=== PATIENT | male | born 1940 ===

== ENCOUNTER 2020-10-02 14:52 | Inpatient (IN) | payer MEDICARE, BC ==
[2020-10-02] MEDS ORDERED: Hydrocortisone Acetate 25 MG Supp RECTAL PRN (20:12)
[2020-10-02] MEDS ORDERED: Polyethylene Glycol 3350 Powder 17 GM Packet PO PRN (20:12)
[2020-10-02] MEDS ORDERED: Albuterol 6.7 GM Inhaler INH PRN (20:12)
[2020-10-02] MEDS ORDERED: PETROLATUM RECTAL PRN (20:14)
[2020-10-02] MEDS ORDERED: SHARK LIVER OIL RECTAL PRN (20:14)
[2020-10-02] MEDS ORDERED: MINERAL OIL RECTAL PRN (20:14)
[2020-10-02] MEDS ORDERED: PHENYLEPHRINE RECTAL PRN (20:14)
--- NOTE | 2020-10-02 20:27 | PCM.HP.2 ---
H&P History of Present Illness - General Date of Service: 10/02/20 Admit Problem/Dx: Admission Diagnosis/Problem Admission Diagnosis/Problem Weakness Source of Information: Patient, Family (Significant other, Mhasa and son, Aris), Other ([facility]. Transfer records from [facility] and [facility]). No: Old Records (No [facility] records available) History Limitations: Reports: No Limitations - History of Present Illness Initial Comments - Free Text/Narative: The patient was transferred to our facility for swing bed admission via transport vehicle from [facility] in [place]. Note that the patient did have an ORIF/pinning of his right hip on 09/24/2020 with complicated postoperative course, including postoperative anemia without transfusions, pos toperative pneumonia, postoperative sepsis, recurrent rapid response called secondary to confusion likely secondary to his Ultram, and additional stroke code called on 09/30/2020 with negative work-up as below. Secondary to these complications his transfer to our facility for PT, OT, and strengthening was delayed. The patient denies any chest pain/pressure, heart flutter, dizziness, orthostasis, orthopnea, diaphoresis, paresthesias, recent decreased exercise tolerance, or any other anginal-type symptoms. No recent history of abdominal pain, heartburn, nausea, diarrhea, melena, gross hematochezia, or any food intolerance, including fatty foods, etc. with normal bowel movement prior to arrival. He does have a Patton catheter secondary to urinary retention with apparently on successful discontinuation during recent hospitalization as above. He denies any gross hematuria, colic, or other UTI symptoms. His arthritis is otherwise stable. The patient also denies any recent fever, wheezing, dyspnea, etc. although occasional persistent mostly clear productive cough. No history of recent headaches, visual changes, diplopia, change in mental status, or other change in neurological status. He denies any significant current pain or discomfort and has no longer required narcotic or Ultram use. Onset of Symptoms: Reports: Sudden Symptom Onset Date: 09/24/20 Duration of Symptoms: Reports: Improving (Tylenol if he can take Tylenol) Location: Reports: Lower Extremity, Right. Denies: Head, Face, Neck, Chest, Abdomen, Back, Pelvis, Upper Extremity, Left, Upper Extremity, Right, Radiates to Quality: Reports: Ache, Same as Previous Episode Severity: Mild Improves with: Reports: Rest Worsens with: Reports: Movement Context: Reports: Trauma (Follow-up with right hip fracture on 09/24/2021) Associated Symptoms: Denies: Confusion, Chest Pain, Cough, Diaphoresis, Fever/Chills, Headaches, Loss of Appetite, Malaise, Nausea/Vomiting, Rash, Seizure, Shortness of Breath, Syncope, Weakness Right Hip Pain Score (Numeric/FACES): 5 - Related Data Allergies/Adverse Reactions: Allergies Allergy/AdvReac Type Severity Reaction Status Date / Time morphine Allergy Nausea Verified 10/02/20 15:55 warfarin Allergy Itching Verified 10/02/20 15:55 isopropyl Nicotinate Allergy Itching Uncoded 10/02/20 15:55 Home Medications: Home Meds Acetaminophen [Acetaminophen Extra Strength] 1,000 mg PO TID 10/02/20 [History] Albuterol Sulfate [Albuterol Sulfate Hfa] 2 puff INH Q6HR PRN 10/02/20 [History] Albuterol/Ipratropium [DuoNeb 3.0-0.5 MG/3 ML] 1 ampule INH Q6HR PRN 10/02/20 [History] Aspirin [Aspirin EC] 81 mg PO BEDTIME 10/02/20 [History] Budesonide/Formoterol [Symbicort 160-4.5 MCG] 2 puff INH BID 10/02/20 [History] Calcium Citrate/Vitamin D3 [Calcium Cit 315 mg-D3 250 Unit] 1 tab PO BIDMEALS 10/02/20 [History] Cholecalciferol (Vitamin D3) [Vitamin D] 1,000 unit PO DAILY 10/02/20 [History] Cyanocobalamin (Vitamin B12) [Vitamin B12] 1,000 mcg PO DAILY 10/02/20 [History] Dabigatran [Pradaxa] 150 mg PO BID 10/02/20 [History] Ferrous Sulfate 325 mg PO DAILY 10/02/20 [History] Furosemide [Lasix] 20 mg PO DAILY@1200 10/02/20 [History] Furosemide [Lasix] 40 mg PO QAM 10/02/20 [History] Hydrocortisone Acetate 25 mg RECTAL BID PRN 10/02/20 [History] Metoprolol Succinate [Toprol Xl] 100 mg PO BID 10/02/20 [History] Omeprazole 20 mg PO BIDMEALS 10/02/20 [History] atorvaSTATin [Lipitor] 40 mg PO DAILY 10/02/20 [History] dilTIAZem HCL [Tiazac] 360 mg PO DAILY 10/02/20 [History] glipiZIDE [Glucotrol] 10 mg PO BIDMEALS 10/02/20 [History] metFORMIN HCl [Glucophage] 1,000 mg PO BIDMEALS 10/02/20 [History] polyethylene glycoL 3350 [MiraLAX] 17 gm PO DAILY PRN 10/02/20 [History] Past Medical History HEENT History: Reports: Cataract, Impaired Vision, Other (See Below). Denies: Allergic Rhinitis, Glaucoma, Hard of Hearing, Macular Degeneration, Otitis Media, Retinal Detachment Other HEENT History: Patient wears reading glasses. Cardiovascular History: Reports: Afib, Arrhythmia, Cardiomyopathy, Heart Failure, Heart Murmur, High Cholesterol, Hypertension, Pulmonary Hypertension, PVD, Other (See Below). Denies: Aneurysm, Blood Clots/VTE/DVT, Bypass, CAD, MD, PTCA, Stents, Syncope Other Cardiovascular History: Left atrial enlargement with mild pulmonary hypertension and mild to moderate tricuspid valve insufficiency by echocardiogram. Severe dyslipidemia. Complete right bundle branch block. Moderate 60% stenosis of the right internal carotid artery by CTA on 09/30/2020 as below, although greater than 70% bilateral stenosis by carotid artery Doppler studies on 10/01/2020. Respiratory History: Reports: Asthma, Bronchitis, Recurrent, COPD, Intubation, Previous, Pneumonia, Recurrent, Other (See Below). Denies: Intubation, Difficult, PE, Pneumothorax, Pulmonary Fibrosis, Sleep Apnea, TB Other Respiratory History: Recurrent left pleural effusions requiring thoracentesis as below. Benign pulmonary granulomas by CT scan. Gastrointestinal History: Reports: Cholelithiasis, Fatty Liver, GERD, Hemorrhoids, Hiatal Hernia, PUD, Other (See Below). Denies: Bowel Obstruction, Celiac Disease, Chronic Constipation, Chronic Diarrhea, Colon Polyp, Diverticulosis, Fecal Incontinence, GI Bleed, Inflammatory Bowel Disease, Irritable Bowel Syndrome, Jaundice Other Gastrointestinal History: Benign right hepatic hemangioma by ultrasound on 02/10/2020. Dysphagia. Genitourinary History: Reports: BPH, Chronic Renal Insuffiency, Diabetic Nephropathy, Retention, Urinary, Urinary Incontinence, Other (See Below). Denies: Renal Calculus, STD, UTI, Recurrent Other Genitourinary History: Grade 3 renal insufficiency. Musculoskeletal History: Reports: Arthritis, Fracture, Osteoarthritis, Other (See Below). Denies: Amputation, Gout, RA, SLE Other Musculoskeletal History: Right hip fracture on 09/24/2020 requiring surgery as below. Additional history of previous distant left hip fracture and concomitant left wrist and left foot fractures secondary to trauma requiring surgeries as below in 1986. Neurological History: Reports: Other (See Below). Denies: Alzheimers Disease, Cerebral Aneurysms, Concussion, CVA, Headaches, Chronic, Head Trauma, Migraines, MS, Neuropathy, Diabetic, Neuropathy, Peripheral, Parkinson's, Seizure, TIA, Vertigo Other Neuro History: Cerebral microvascular disease by CT scan with additional postoperative encephalopathy in September 2020 by EEG as below. Psychiatric History: Reports: Addiction, Other (See Below). 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 Endocrine/Metabolic History: Reports: Diabetes, Type II, Hypokalemia, Other (See Below). Denies: Diabetes, Type I, Hypomagnesemia, IDDM, Obesity/BMI 30+ Other Endocrine/Metabolic History: Hypocalcemia. Hyponatremia. Hematologic History: Reports: Anemia, B12 Deficiency, Iron Deficiency, Other (See Below) Other Hematologic History: Postoperative anemia not requiring transfusion. Immunologic History: Reports: None. Denies: AIDS, HIV, SLE Oncologic (Cancer) History: Reports: None. Denies: Basal Cell Carcinoma, Bladder, Colon, Hodgkin's Lymphoma, Leukemia, Lymphoma, Non-Hodgkin's Lymphoma, Prostate, Squamous Cell Carcinoma Dermatologic History: Denies: Eczema, Psoriasis - Infectious Disease History Infectious Disease History: Reports: Chicken Pox, Measles, Mumps, Scarlet Fever. Denies: C-Difficile, Meningitis, Mononucleosis, MRSA, Novel Coronavirus, Rheumatic Fever, Rubella, Shingles, TB, VRE - Past Surgical History HEENT Surgical History: Reports: Cataract Surgery, Eye Surgery, Oral Surgery, Other (See Below). Denies: Adenoidectomy, Laser Surgery, LASIK, Myringotomy w Tube(s), Naso-Sinus Surgery, Tonsillectomy Other HEENT Surgeries/Procedures: Complete teeth extraction with the patient only using upper dentures. Right cataract surgery in the 1970s. Bilateral lacrimal duct dilatation. Cardiovascular Surgical History: Denies: Varicose Respiratory Surgical History: Reports: Thoracentesis, Other (See Below) Other Respiratory Surgeries/Procedures: Left-sided thoracentesis on 09/30/2020 and 08/26/2020. GI Surgical History: Reports: Colon, Other (See Below) Other GI Surgeries/Procedures: Colonoscopy and EGD at the [facility] in September 2020 with records not available. Musculoskeletal Surgical History: Reports: ORIF, Other (See Below) Other Musculoskeletal Surgeries/Procedures:: ORIF/nail repair of right hip fracture on 09/24/2010 with similar procedure of the left hip in 1986. Note concomitant ORIF of left distal radial ulnar fracture and left foot fracture in 1986 at time of left hip surgery as above. - Past Imaging History Past Imaging History: Reports: Cardiac Echo (Last echocardiogram on 09/25/2020 did show some mild cardiomyopathy with ejection fraction of only 50% and otherwise findings as above. Previous echocardiogram in November 2019 showed an ejection fraction of 55-66%.), Carotid US (10/01/2020 with greater than 70% bilateral stenosis.), CAT Scan (CTA of the neck and head on 09/30/2020 with findings as above and otherwise right-sided 60% internal artery carotid stenosis. CT of the chest on 09/26/2020 with previous CTA of the chest on 08/23/2020.), MRA (MRA/MRI of the head on 09/30/2020), Swallow Study (Positive on 10/01/2020.), Ultrasound (Abdominal on 02/10/2020.), Venous Doppler (Negative venous Doppler study of the right leg on 09/26/2020.) Social & Family History - Family History Family Medical History: No Pertinent Family History Cardiac: Reports: CAD, Hypertension, Other (See Below) Other Cardiac Family History: Father with hypertension and coronary artery disease. Neurological: Reports: Parkinson's, Other (See Below) Other Neurological Family History: Mother with Parkinson's disease. Endocrine/Metabolic: Reports: Diabetes, type II, Other (See Below) Other Endocrine/Metabolic Family History: Mother with diabetes mellitus - Tobacco Use Tobacco Use Status *Q: Former Tobacco User Tobacco Use Within Last Twelve Months: No Years of Tobacco use: 39 Packs/Tins Daily: 4 Packs/Tins Daily Comment: Patient started smoking at age 17. Used Tobacco, but Quit: Yes Smoking Cessation Information Provided To Patient: No Second Hand Smoke Exposure: No Second Hand Smoke Education Provided: No - Caffeine Use Caffeine Use: Reports: Coffee (2 cups/day), Soda (Occasional), Tea (Occasional). Denies: Energy Drinks - Alcohol Use Alcohol Use History: No Days Per Week of Alcohol Use: 0 Number of Drinks Per Day: 0 Number of Drinks Per Day Comment: Possible history of borderline alcohol abuse while he was in the with no history of DWI, alcohol treatment, etc. Total Drinks Per Week: 0 Alcohol Use in Last Twelve Months: No - Recreational Drug Use Recreational Drug Use: No Drug Use in Last 12 Months: No Recreational Drug Type: Denies: Amphetamines (Speed), Cocaine, Heroin, Inhalants (Glues, Solvents, Aerosols), LSD (Acid), Marijuana/Hashish, Methamphetamine, Morphine, Oxycodone - Living Situation & Occupation Living situation: Reports: (X2. 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 Exam - Exam Exam: See Below - Vital Signs Vital Signs: Last Vital Signs Temp 37.7 C 10/02/20 15:56 Pulse 103 H 10/02/20 15:56 Resp 18 10/02/20 15:56 BP 123/58 L 10/02/20 15:56 Pulse Ox 95 10/02/20 15:56 Weight: 81.193 kg - Exam Quality Assessment: Urinary Catheter, DVT Prophylaxis (Pradaxa), Skin Breakdown (Mild rectal fold decubitus ulcer). No: Supplemental Oxygen, Central Line/PICC, Restraints General: Oriented, Cooperative HEENT: Conjunctiva Clear, EACs Clear, EOMI, Hearing Intact, Mucosa Moist & [place], Nares Patent, Normal Nasal Septum, Posterior Pharynx Clear, Pupils Equal, Pupils Reactive, TMs Clear, PERRLA Neck: Supple, Trachea Midline, Full Range of Motion, Carotid Bruit (Moderate 3/6 right-sided). No: Lymphadenopathy, JVD, Thyromegaly Lungs: Normal Respiratory Effort, Decreased Breath Sounds (Bases bilaterally left greater than right), Rales (Mild diffuse bilateral). No: Rhonchi, Rub, Stridor, Wheezing Cardiovascular: Normal S1, Normal S2, Irregular Rhythm, Systolic Murmur (Mild 1/6 LINDA of aortic valve). No: Diastolic Murmur, Rubs, Gallop/S3, Gallop/S4 GI/Abdominal Exam: Normal Bowel Sounds, Soft, Non-Tender, No Organomegaly, No Distention, No Abnormal Bruit, No Mass, Pelvis Stable, Other (Obese). No: Guarding (Male) Exam: Deferred Rectal (Males) Exam: Deferred Back Exam: Normal Inspection, Full Range of Motion. No: CVA Tenderness (L), CVA Tenderness (R), Muscle Spasm Extremities: No Pedal Edema, Normal Capillary Refill, Leg Pain (Mild in right hip secondary to recent fracture and surgery), Limited Range of Motion (Right hip secondary to recent surgery), Other (Excision side over the right lateral hip shows no local signs of infection or dehiscence. [place] present.). No: Increased Warmth, Redness Peripheral Pulses: 2+: Radial (L), Radial (R), Dorsalis Pedis (L), Dorsalis Pedis (R) Skin: Warm, Dry, Intact, Ecchymosis (Moderate to severe bruises on his arms bilaterally likely secondary to previous IV sites, etc.), Incision (Right hip incision as above), Decubitis (1 cm superficial grade 12 decubitus in the rectal fold). No: Rash, Petechia Neurological: Cranial Nerves Intact, Reflexes Equal Bilateral, Babinski Absent. No: Babinski Neuro Extensive - Mental Status: Alert, Oriented x3, Normal Mood/Affect, Normal Cognition Psychiatric: Alert, Normal Affect, Normal Mood. No: Agitated, Hallucinations, Withdrawal Symptoms - Patient Data Lab Results Last 24 hrs: Laboratory Results - last 24 hr 10/02/20 Range/Units 17:11 POC Glucose 249 H (65-110) mg/dl Otherwise blood work, x-rays, and EKG to be conducted on 10/03/2020. Imaging Impressions Last 24 hrs: As above Sepsis Event Note - Evaluation Sepsis Screening Result: No Definite Risk - Focused Exam Vital Signs: Vital Signs Temp Pulse Resp BP Pulse Ox 10/02/20 15:56 37.7 C 103 H 18 123/58 L 95 - Problem List (1) Weakness SNOMED Code(s): 62625852 ICD Code: R53.1 - WEAKNESS Status: Acute Priority: High Current Visit: Yes Problem Details: Postoperative weakness with patient admitted to swing bed for PT/OT, and strengthening. (2) Atrial fibrillation SNOMED Code(s): 62168184 ICD Code: I48.91 - UNSPECIFIED ATRIAL FIBRILLATION Status: Chronic Priority: Medium Current Visit: Yes Problem Details: Currently on Pradaxa. No chest pain or anginal type symptoms despite evidence of CHF and left pleural effusion during recent hospitalization. Chest x-ray, EKG, and cardiac labs are to be conducted in the a.m. Note elevated BNP of 783 on 10/01. Note recent echocardiogram on 09/25/2020 with results as above. Qualifiers: Atrial fibrillation type: permanent Qualified Code(s): I48.21 - Permanent atrial fibrillation (3) CHF (congestive heart failure) SNOMED Code(s): 52701389 ICD Code: I50.9 - HEART FAILURE, UNSPECIFIED Status: Chronic Priority: Medium Current Visit: Yes Problem Details: As above Qualifiers: Heart failure type: systolic Heart failure chronicity: acute on chronic Qualified Code(s): I50.23 - Acute on chronic systolic (congestive) heart failure (4) Osteoarthritis SNOMED Code(s): 388464925 ICD Code: M19.90 - UNSPECIFIED OSTEOARTHRITIS, UNSPECIFIED SITE Status: Chronic Priority: Medium Current Visit: Yes Problem Details: Otherwise stable by history despite recent right hip fracture and ORIF as above. Qualifiers: Osteoarthritis location: multiple joints Osteoarthritis type: primary Qualified Code(s): M89.49 - Other hypertrophic osteoarthropathy, multiple sites (5) Dyslipidemia SNOMED Code(s): 982114365 ICD Code: E78.5 - HYPERLIPIDEMIA, UNSPECIFIED Status: Chronic Priority: Medium Current Visit: Yes Problem Details: Severe dyslipidemia with HDL of only 18 on 09/30/2020. (6) Diabetes mellitus SNOMED Code(s): 53464456 ICD Code: E11.9 - TYPE 2 DIABETES MELLITUS WITHOUT COMPLICATIONS Status: Chronic Priority: Medium Current Visit: Yes Problem Details: Patient carmela rendon did need sliding scale during recent hospitalization, however was not on insulin previously. Continue sliding scale for now. Glycosylated hemoglobin in the a.m. Qualifiers: Diabetes mellitus type: type 2 Diabetes mellitus keno terminal operator insulin use: without keno terminal operator use Diabetes mellitus complication status: with kidney complications Diabetes mellitus complication detail: with chronic kidney disease Chronic kidney disease stage: stage 3 (moderate) (7) Anemia SNOMED Code(s): 099124649 ICD Code: D64.9 - ANEMIA, UNSPECIFIED Status: Acute Priority: Medium Current Visit: Yes Problem Details: History of postoperative anemia with hemoglobin of 9.2 and mild thrombocytosis on 10/01/2020. No evidence of acute GI bleed. Blood work scheduled for 10/02. Note history of both vitamin B12 and iron deficiency. Qualifiers: Anemia type: iron deficiency (8) Peptic reflux disease SNOMED Code(s): 239001970 ICD Code: K21.9 - GASTRO-ESOPHAGEAL REFLUX DISEASE WITHOUT ESOPHAGITIS Status: Chronic Priority: Medium Current Visit: Yes Problem Details: Stable by history. Continue current medical therapy. (9) Carotid artery occlusion Status: Chronic Priority: High Current Visit: Yes Onset Date: ~10/01/20 Problem Details: Note bilateral disease by carotid artery Doppler studies with mostly right-sided disease by CTA of the neck on 09/30/2020. By family history they already have scheduled follow-up evaluations as scheduled at [place]. Qualifiers: Laterality: bilateral Qualified Code(s): I65.23 - Occlusion and stenosis of bilateral carotid arteries (10) COPD (chronic obstructive pulmonary disease) SNOMED Code(s): 40927484 ICD Code: J44.9 - CHRONIC OBSTRUCTIVE PULMONARY DISEASE, UNSPECIFIED Status: Chronic Priority: Medium Current Visit: Yes Problem Details: Note possible postoperative pneumonia based on review of records as above. Patient was to be discharged with antibiotics with history of postoperative sepsis including positive blood cultures for Staph epidermidis. Obtain further clarification from [facility]. Qualifiers: COPD type: emphysema Emphysema type: panlobular Qualified Code(s): J43.1 - Panlobular emphysema Problem List Initiated/Reviewed/Updated: Yes Orders Last 24hrs: Active Orders 24 hr Category Date Time Status Patient Status [ADT] Routine ADT 10/02/20 20:06 Active Communication Order [RC] ROUTINE Care 10/02/20 20:18 Active Communication Order [RC] ROUTINE Care 10/02/20 20:18 Active Height and Weight [RC] PER UNIT ROUTINE Care 10/02/20 20:08 Active Intake and Output [RC] ASDIRECTED Care 10/02/20 20:06 Active May Shower [RC] ASDIRECTED Care 10/02/20 20:06 Active Notify Provider Vital Signs [RC] ASDIRECTED Care 10/02/20 20:08 Active Oxygen Therapy [RC] PRN Care 10/02/20 20:06 Active RT Aerosol Therapy [RC] ASDIRECTED Care 10/02/20 20:14 Active RT Post Treatment Assessment [RC] Click to Edit Care 10/02/20 20:14 Active RT Pre-Treatment Assessment [RC] Click to Edit Care 10/02/20 20:14 Active Up With Assistance [RC] ASDIRECTED Care 10/02/20 20:06 Active Urinary Catheter Assessment [RC] ASDIRECTED Care 10/02/20 20:06 Active VTE/DVT Education [RC] PER UNIT ROUTINE Care 10/02/20 20:06 Active Vital Signs [RC] PER UNIT ROUTINE Care 10/02/20 20:06 Active Consult to Case Management/Air Conditioning Mechanic [CONS] Cons 10/02/20 20:06 Active Routine OT Evaluation and Treatment [CONS] Routine Cons 10/02/20 20:06 Active PT Evaluation and Treatment [CONS] Routine Cons 10/02/20 20:06 Active Chest 1V Frontal [CR] Routine Exams 10/03/20 05:11 Ordered CBC WITH AUTO DIFF [HEME] Routine Lab 10/03/20 05:11 Ordered CK W CKMB [CHEM] Routine Lab 10/03/20 05:11 Ordered COMPREHENSIVE METABOLIC PN,CMP [CHEM] Routine Lab 10/03/20 05:11 Ordered INR,PT,PROTHROMBIN TIME [COAG] Routine Lab 10/03/20 05:11 Ordered PRO B-TYPE NATRIUR PEPT,BNPPRO [CHEM] Routine Lab 10/03/20 05:11 Ordered PTT,PARTIAL THROMBOPLSTIN TIME [COAG] Routine Lab 10/03/20 05:11 Ordered TROPONIN I [CHEM] Routine Lab 10/03/20 05:11 Ordered Acetaminophen [Tylenol Extra Strength] Med 10/03/20 08:00 Ordered 1,000 mg PO TID Albuterol [Proventil HFA] Med 10/02/20 20:12 Ordered DOSE gm INH Q6HR PRN Albuterol/Ipratropium [DuoNeb 3.0-0.5 MG/3 ML] Med 10/02/20 20:12 Ordered DOSE ml INH Q6HR PRN Aspirin [Halfprin] Med 10/03/20 20:00 Ordered 81 mg PO BEDTIME Budesonide/Formoterol Med 10/03/20 08:00 Ordered 2 puff INH BID Calcium Citrate/Vitamin D3 [Calcium Cit 315 mg-D3 250 Med 10/03/20 07:30 Ordered Unit] 1 tab PO BIDMEALS Cholecalciferol (Vitamin D3) [Vitamin D3] Med 10/03/20 08:00 Ordered DOSE mcg PO DAILY Cyanocobalamin (Vitamin B12) [Vitamin B12] Med 10/03/20 08:00 Ordered 1,000 mcg PO DAILY Dabigatran Med 10/03/20 08:00 Ordered 150 mg PO BID Ferrous Sulfate Med 10/03/20 08:00 Ordered 325 mg PO DAILY Furosemide [Lasix] Med 10/03/20 12:00 Ordered 20 mg PO DAILY@1200 Furosemide [Lasix] Med 10/03/20 08:00 Ordered 40 mg PO QAM Hydrocortisone Acetate [Anucort-HC] Med 10/02/20 20:12 Ordered 25 mg RECTAL BID PRN MO/Pet,Wh/Phenylephrine/Shk Lv [Preparation H Oint] Med 10/02/20 20:14 Ordered 1 gm RECTAL ASDIRECTED PRN Metoprolol Succinate [Toprol Xl] Med 10/03/20 08:00 Ordered 100 mg PO BID Omeprazole Med 10/03/20 07:30 Ordered 20 mg PO BIDMEALS atorvaSTATin [Lipitor] Med 10/03/20 08:00 Ordered 40 mg PO DAILY dilTIAZem HCL [Tiazac] Med 10/03/20 08:00 Ordered 360 mg PO DAILY glipiZIDE [Glucotrol] Med 10/03/20 07:30 Ordered 10 mg PO BIDMEALS metFORMIN HCl [Glucophage] Med 10/03/20 07:30 Ordered 1,000 mg PO BIDMEALS polyethylene glycoL 3350 [MiraLAX] Med 10/02/20 20:12 Ordered 17 gm PO DAILY PRN Patient May Not [OM.PC] Click to Edit Oth 10/02/20 20:06 Ordered Resuscitation Status Routine Resus Stat 10/02/20 20:06 Ordered Medication Orders Acetaminophen (Tylenol Extra Strength) 1,000 mg PO TID CARLY Albuterol (Proventil Hfa) gm INH Q6HR PRN PRN Reason: Wheezing/Shortness of breath Albuterol/Ipratropium (Duoneb 3.0-0.5 Mg/3 Ml) ml INH Q6HR PRN PRN Reason: Shortness Of Breath/Wheezing Aspirin (Halfprin) 81 mg PO BEDTIME CARLY Atorvastatin Calcium (Lipitor) 40 mg PO DAILY CARLY Cholecalciferol (Vitamin D3) mcg PO DAILY CARLY Cyanocobalamin (Vitamin B12) 1,000 mcg PO DAILY CARLY Ferrous Sulfate (Ferrous Sulfate) 325 mg PO DAILY CARLY Furosemide (Lasix) 20 mg PO DAILY@1200 CARLY Furosemide (Lasix) 40 mg PO QAM CARLY Hydrocortisone Acetate (Anucort-Hc) 25 mg RECTAL BID PRN PRN Reason: Hemorrhoids Non-Formulary Medication (Budesonide/Formoterol) 2 puff INH BID CARLY Non-Formulary Medication (Calcium Citrate/Vitamin D3 [Calcium Cit 315 Mg-D3 250 Unit]) 1 tab PO BIDMEALS CARLY Non-Formulary Medication (Dabigatran) 150 mg PO BID CARLY Non-Formulary Medication (Diltiazem Hcl [Tiazac]) 360 mg PO DAILY CARLY Non-Formulary Medication (Glipizide [Glucotrol]) 10 mg PO BIDMEALS CARLY Non-Formulary Medication (Metformin Hcl [Glucophage]) 1,000 mg PO BIDMEALS CARLY Non-Formulary Medication (Metoprolol Succinate [Toprol Xl]) 100 mg PO BID CARLY Omeprazole (Omeprazole) 20 mg PO BIDMEALS [facility] Phenyleph/Shark Oil/Min Oil/Petrol (Preparation H Oint) 1 gm RECTAL ASDIRECTED PRN PRN Reason: Hemorrhoids Polyethylene Glycol (Miralax) 17 gm PO DAILY PRN PRN Reason: Constipation Assessment/Plan Comment:: As above. Extensive precautions were given to the patient, his son, and significant other, who are in agreement with the treatment plan. Continue swing bed care with advancement of activity, etc. as per PT/OT. - Mortality Measure Prognosis:: Good
[2020-10-02] MEDS ORDERED: Glucagon,Human Recombinant 1 MG Vial IM PRN (21:16)
[2020-10-02] MEDS ORDERED: 50% Dextrose in Water 50 ML Syringe IV PRN (21:16)
[2020-10-03] MEDS ORDERED: CALCIUM CITRATE PO SCH (07:30)
[2020-10-03] MEDS ORDERED: CHOLECALCIFEROL PO SCH (07:30)
[2020-10-03] MEDS: Diltiazem 180 MG Cap.CD PO SCH (07:46)
[2020-10-03] MEDS: Ferrous Sulfate 325 MG Tab PO SCH (07:46)
[2020-10-03] MEDS: Omeprazole 20 MG Cap.CR PO SCH ×2 (07:46→17:02)
[2020-10-03] MEDS: Cholecalciferol (Vitamin D3) 25 MCG Tab PO SCH (07:47)
[2020-10-03] MEDS: Cyanocobalamin (Vitamin B12) 1,000 MCG Tab PO SCH (07:47)
[2020-10-03] MEDS: Furosemide 40 MG Tab PO SCH (07:47)
[2020-10-03] MEDS: metFORMIN 500 MG Tab PO SCH ×2 (07:47→18:36)
[2020-10-03] MEDS: Acetaminophen 500 MG Tab PO SCH ×3 (07:47→17:01)
[2020-10-03] MEDS: Metoprolol Succinate 50 MG Tab.ER PO SCH ×2 (07:48→17:09)
[2020-10-03] MEDS: atorvaSTATin 40 MG Tab PO SCH (07:48)
[2020-10-03] MEDS: glipiZIDE 5 MG Tab PO SCH ×2 (07:48→18:36)
[2020-10-03 07:59] LABS: HEMOGLOBIN A1C 9.5 % (4.3-5.7)
[2020-10-03] MEDS: Insulin Lispro 100 Units/ML 3 ML Vial SUBCUT SCH ×2 (08:06→11:27)
[2020-10-03 08:18] LABS: CHLORIDE,CL 101 mmol/L (98-107); SODIUM,NA 137 mmol/L (136-145)
[2020-10-03 08:40] LABS: PTT,PARTIAL THROMBOPLSTIN TIME 32.1 SEC (24.5-32.8)
[2020-10-03] MEDS: Furosemide 20 MG Tab PO SCH (11:27)
[2020-10-03] MEDS: Amoxicillin/Clavulanate K 875-125 MG Tab PO SCH ×2 (11:27→20:34)
[2020-10-03] MEDS: Formoterol/Mometasone 200-5 MCG 8.8 GM Inhaler IH SCH ×2 (15:32→17:06)
[2020-10-03] MEDS: DABIGATRAN 150 MG PO SCH ×2 (15:32→17:08)
[2020-10-03] MEDS: INSULIN LISPRO 100 UNIT/ML SUBCUT SCH ×2 (16:59→20:39)
[2020-10-03] MEDS: AREDS PO SCH (17:02)
[2020-10-03] MEDS: Aspirin 81 MG Tab.EC PO SCH (20:34)
[2020-10-03] MEDS ORDERED: Loperamide 2 MG Tab PO PRN (21:27)
[2020-10-04] MEDS ORDERED: Aluminum Hydroxide/Magnesium Hydroxide/Simethicone Susp 30 ML Cup PO PRN (05:24)
[2020-10-04] MEDS: Albuterol/Ipratropium 3.0-0.5 MG/3 ML Neb Soln INH PRN ×2 (05:28→12:24)
[2020-10-04] MEDS: Formoterol/Mometasone 200-5 MCG 8.8 GM Inhaler IH SCH ×2 (08:02→17:15)
[2020-10-04] MEDS: DABIGATRAN 150 MG PO SCH ×2 (08:03→17:18)
[2020-10-04] MEDS: Calcium Carbonate/Vitamin D3 1500 MG-400 Units Tab PO SCH (08:08)
[2020-10-04] MEDS: Amoxicillin/Clavulanate K 875-125 MG Tab PO SCH ×2 (08:08→19:42)
[2020-10-04] MEDS: Omeprazole 20 MG Cap.CR PO SCH ×2 (08:08→17:15)
[2020-10-04] MEDS: glipiZIDE 5 MG Tab PO SCH ×2 (08:08→17:14)
[2020-10-04] MEDS: Metoprolol Succinate 50 MG Tab.ER PO SCH ×2 (08:09→17:13)
[2020-10-04] MEDS: atorvaSTATin 40 MG Tab PO SCH (08:11)
[2020-10-04] MEDS: Diltiazem 180 MG Cap.CD PO SCH (08:11)
[2020-10-04] MEDS: Ferrous Sulfate 325 MG Tab PO SCH (08:11)
[2020-10-04] MEDS: Furosemide 40 MG Tab PO SCH (08:12)
[2020-10-04] MEDS: Cholecalciferol (Vitamin D3) 25 MCG Tab PO SCH (08:12)
[2020-10-04] MEDS: Acetaminophen 500 MG Tab PO SCH ×3 (08:13→17:15)
[2020-10-04] MEDS: metFORMIN 500 MG Tab PO SCH ×2 (08:13→17:14)
[2020-10-04] MEDS: Cyanocobalamin (Vitamin B12) 1,000 MCG Tab PO SCH (08:14)
[2020-10-04] MEDS: AREDS PO SCH ×2 (08:15→17:18)
[2020-10-04] MEDS: INSULIN LISPRO 100 UNIT/ML SUBCUT SCH ×4 (08:33→20:44)
[2020-10-04] MEDS ORDERED: traMADol 50 MG Tab PO PRN (09:00)
[2020-10-04] MEDS ORDERED: Ondansetron 4 MG Tab.DIS PO PRN (09:02)
[2020-10-04] MEDS: cefTRIAXone 1 GM Vial IM SCH (10:15)
[2020-10-04] MEDS: Furosemide 20 MG Tab PO SCH (11:59)
[2020-10-04] MEDS: Aspirin 81 MG Tab.EC PO SCH (19:42)
[2020-10-05] MEDS ORDERED: Lutein/Minerals/Vitamin C/Vitamin E Acetate Cap ONE (07:30)
[2020-10-05] MEDS: Acetaminophen/Codeine 300-30 MG Tab PO PRN ×3 (07:51→21:24)
[2020-10-05] MEDS: Acetaminophen 325 MG Tab PO SCH ×3 (07:52→17:17)
[2020-10-05] MEDS: atorvaSTATin 40 MG Tab PO SCH (07:53)
[2020-10-05] MEDS: Furosemide 40 MG Tab PO SCH (07:53)
[2020-10-05] MEDS: Calcium Carbonate/Vitamin D3 1500 MG-400 Units Tab PO SCH (07:53)
[2020-10-05] MEDS: Ferrous Sulfate 325 MG Tab PO SCH (07:53)
[2020-10-05] MEDS: INSULIN LISPRO 100 UNIT/ML SUBCUT SCH ×4 (07:54→20:37)
[2020-10-05] MEDS: Omeprazole 20 MG Cap.CR PO SCH ×2 (07:54→17:18)
[2020-10-05] MEDS: glipiZIDE 5 MG Tab PO SCH ×2 (07:54→17:15)
[2020-10-05] MEDS: Cyanocobalamin (Vitamin B12) 1,000 MCG Tab PO SCH (07:55)
[2020-10-05] MEDS: Cholecalciferol (Vitamin D3) 25 MCG Tab PO SCH (07:55)
[2020-10-05] MEDS: Metoprolol Succinate 50 MG Tab.ER PO SCH ×2 (07:55→17:17)
[2020-10-05] MEDS: Diltiazem 180 MG Cap.CD PO SCH (07:56)
[2020-10-05] MEDS: DABIGATRAN 150 MG PO SCH ×2 (07:57→17:18)
[2020-10-05] MEDS: Formoterol/Mometasone 200-5 MCG 8.8 GM Inhaler IH SCH ×2 (08:03→17:13)
[2020-10-05] MEDS: metFORMIN 500 MG Tab PO SCH ×2 (08:03→17:17)
[2020-10-05] MEDS: AREDS PO SCH ×2 (08:03→17:13)
[2020-10-05] MEDS: cefTRIAXone 1 GM Vial IM SCH (10:25)
[2020-10-05] MEDS: Furosemide 20 MG Tab PO SCH (11:41)
[2020-10-05] MEDS: Aspirin 81 MG Tab.EC PO SCH (20:37)
[2020-10-06 07:44] LABS: CHLORIDE,CL 99 mmol/L (98-107); SODIUM,NA 136 mmol/L (136-145)
[2020-10-06] MEDS ORDERED: Lutein/Minerals/Vitamin C/Vitamin E Acetate Cap ONE ×2 (07:45→17:18)
[2020-10-06] MEDS: Metoprolol Succinate 50 MG Tab.ER PO SCH ×2 (07:52→17:26)
[2020-10-06] MEDS: Diltiazem 180 MG Cap.CD PO SCH (07:53)
[2020-10-06] MEDS: Omeprazole 20 MG Cap.CR PO SCH ×2 (07:54→17:24)
[2020-10-06] MEDS: Calcium Carbonate/Vitamin D3 1500 MG-400 Units Tab PO SCH (07:54)
[2020-10-06] MEDS: metFORMIN 500 MG Tab PO SCH ×2 (07:54→17:24)
[2020-10-06] MEDS: Cholecalciferol (Vitamin D3) 25 MCG Tab PO SCH (07:54)
[2020-10-06] MEDS: Acetaminophen 325 MG Tab PO SCH ×3 (07:55→17:25)
[2020-10-06] MEDS: Cyanocobalamin (Vitamin B12) 1,000 MCG Tab PO SCH (07:55)
[2020-10-06] MEDS: Ferrous Sulfate 325 MG Tab PO SCH (07:55)
[2020-10-06] MEDS: glipiZIDE 5 MG Tab PO SCH ×2 (07:55→17:24)
[2020-10-06] MEDS: Furosemide 40 MG Tab PO SCH (07:55)
[2020-10-06] MEDS: Formoterol/Mometasone 200-5 MCG 8.8 GM Inhaler IH SCH ×2 (08:02→17:29)
[2020-10-06] MEDS: DABIGATRAN 150 MG PO SCH ×2 (08:03→17:35)
[2020-10-06] MEDS: AREDS PO SCH ×2 (08:03→17:34)
[2020-10-06] MEDS: INSULIN LISPRO 100 UNIT/ML SUBCUT SCH ×4 (08:03→20:15)
[2020-10-06] MEDS: Acetaminophen/Codeine 300-30 MG Tab PO PRN ×2 (09:37→20:14)
[2020-10-06] MEDS: cefTRIAXone 1 GM Vial IM SCH (09:43)
[2020-10-06] MEDS: Furosemide 20 MG Tab PO SCH (11:46)
[2020-10-06] MEDS: Aspirin 81 MG Tab.EC PO SCH (20:15)
[2020-10-06] MEDS: atorvaSTATin 40 MG Tab PO SCH (20:15)
[2020-10-07] MEDS: Acetaminophen/Codeine 300-30 MG Tab PO PRN ×2 (04:01→20:19)
[2020-10-07] MEDS: Calcium Carbonate/Vitamin D3 1500 MG-400 Units Tab PO SCH (07:49)
[2020-10-07] MEDS: DABIGATRAN 150 MG PO SCH ×2 (07:49→17:02)
[2020-10-07] MEDS: Diltiazem 180 MG Cap.CD PO SCH (07:49)
[2020-10-07] MEDS: Formoterol/Mometasone 200-5 MCG 8.8 GM Inhaler IH SCH ×2 (07:50→17:03)
[2020-10-07] MEDS: INSULIN LISPRO 100 UNIT/ML SUBCUT SCH ×4 (07:51→20:19)
[2020-10-07] MEDS: metFORMIN 500 MG Tab PO SCH ×2 (07:51→17:03)
[2020-10-07] MEDS: glipiZIDE 5 MG Tab PO SCH ×2 (07:51→17:03)
[2020-10-07] MEDS: Ferrous Sulfate 325 MG Tab PO SCH (07:51)
[2020-10-07] MEDS: Furosemide 40 MG Tab PO SCH (07:52)
[2020-10-07] MEDS: Metoprolol Succinate 50 MG Tab.ER PO SCH ×2 (07:53→17:04)
[2020-10-07] MEDS: AREDS PO SCH ×2 (07:53→17:10)
[2020-10-07] MEDS: Omeprazole 20 MG Cap.CR PO SCH ×2 (07:54→17:03)
[2020-10-07] MEDS: Acetaminophen 325 MG Tab PO SCH ×3 (07:54→17:07)
[2020-10-07] MEDS: Cholecalciferol (Vitamin D3) 25 MCG Tab PO SCH (07:54)
[2020-10-07] MEDS: Cyanocobalamin (Vitamin B12) 1,000 MCG Tab PO SCH (07:54)
[2020-10-07] MEDS: Furosemide 20 MG Tab PO SCH (12:00)
[2020-10-07] MEDS: Aspirin 81 MG Tab.EC PO SCH (20:18)
[2020-10-07] MEDS: atorvaSTATin 40 MG Tab PO SCH (20:19)
[2020-10-08 07:33] LABS: CHLORIDE,CL 102 mmol/L (98-107); SODIUM,NA 138 mmol/L (136-145)
[2020-10-08] MEDS: INSULIN LISPRO 100 UNIT/ML SUBCUT SCH ×4 (07:53→20:33)
[2020-10-08] MEDS: Cholecalciferol (Vitamin D3) 25 MCG Tab PO SCH (08:03)
[2020-10-08] MEDS: glipiZIDE 5 MG Tab PO SCH ×2 (08:03→18:09)
[2020-10-08] MEDS: Furosemide 40 MG Tab PO SCH (08:04)
[2020-10-08] MEDS: Metoprolol Succinate 50 MG Tab.ER PO SCH ×2 (08:04→18:10)
[2020-10-08] MEDS: Diltiazem 180 MG Cap.CD PO SCH (08:04)
[2020-10-08] MEDS: Omeprazole 20 MG Cap.CR PO SCH ×2 (08:05→18:14)
[2020-10-08] MEDS: Acetaminophen 325 MG Tab PO SCH ×3 (08:05→18:13)
[2020-10-08] MEDS: Ferrous Sulfate 325 MG Tab PO SCH ×2 (08:05→18:15)
[2020-10-08] MEDS: Calcium Carbonate/Vitamin D3 1500 MG-400 Units Tab PO SCH (08:05)
[2020-10-08] MEDS: metFORMIN 500 MG Tab PO SCH ×2 (08:06→18:13)
[2020-10-08] MEDS: AREDS PO SCH ×2 (08:06→18:09)
[2020-10-08] MEDS: Cyanocobalamin (Vitamin B12) 1,000 MCG Tab PO SCH (08:06)
[2020-10-08] MEDS: DABIGATRAN 150 MG PO SCH ×2 (08:07→18:15)
[2020-10-08] MEDS: Formoterol/Mometasone 200-5 MCG 8.8 GM Inhaler IH SCH ×2 (08:08→18:09)
[2020-10-08] MEDS ORDERED: Magnesium Hydroxide 400 MG/5 ML Susp 30 ML Cup PO PRN (08:48)
--- NOTE | 2020-10-08 09:48 | PCM.PN ---
- General Info Date of Service: 10/08/20 Admission Dx/Problem (Free Text): Admission Diagnosis/Problem Admission Diagnosis/Problem 1.Weakness 2. Status post right hip ORIF 3. Postoperative anemia 4. CHF Functional Status: Reports: Tolerating Diet, Ambulating (With assist), Urinating, Incentive Spirometry. Denies: Pain Controlled (Persistent intermittent hemorrhoid and right hip pain), New Symptoms Pain Score: 10 - Review of Systems General: Reports: Fever, Weakness (Slowly improving). Denies: Fatigue, Malaise, Chills, Night Sweats, Appetite (Adequate) HEENT: Reports: No Symptoms. Denies: Dysphasia, Ear Pain, Eye Pain, Headaches, Sinus Congestion, Sore Throat, Rhinitis, Visual Changes Pulmonary: Reports: Cough. Denies: Shortness of Breath, Pleuritic Chest Pain, Sputum, Hemoptysis, Wheezing Cardiovascular: Reports: No Symptoms. Denies: Chest Pain, Palpitations, Dyspnea on Exertion, Orthopnea, PND, Edema, Lightheadedness Gastrointestinal: Reports: Constipation, Hematochezia (Mild secondary to hemorrhoids). Denies: Abdominal Pain, Decreased Appetite, Melena, Nausea, Vomiting Genitourinary: Reports: No Symptoms. Denies: Dysuria, Frequency, Burning, Urgency, Hematuria, Retention, Flank Pain Musculoskeletal: Reports: Joint Pain (Right hip. Improving slowly.) Skin: Reports: Bruising (Stable). Denies: Diaphoresis Neurological: Reports: Difficulty Walking (As above secondary to right hip surgery), Weakness (As above). Denies: Confusion Psychiatric: Reports: No Symptoms. Denies: Confusion, Depression, Anxiety, Agitation, Hallucinations - Patient Data Vitals - Most Recent: Last Vital Signs Temp 37.5 C 10/08/20 08:00 Pulse 98 10/08/20 08:04 Resp 24 H 10/08/20 08:00 BP 128/70 10/08/20 08:04 Pulse Ox 94 L 10/08/20 08:00 Vital Signs - 24 hr 10/07/20 10/07/20 10/08/20 17:04 17:11 08:00 Temperature [ 36.7 C 37.5 C Oral] Pulse, 101 H Peripheral Pulse, 101 H 98 Peripheral [ Right Pulse Oximetry] Respiratory 20 24 H Rate Blood Pressure 131/61 Blood Pressure 131/61 128/70 [Right Upper Arm] O2 Sat by Pulse 91 L 94 L Oximetry 10/08/20 08:04 Temperature [ Oral] Pulse, 98 Peripheral Pulse, Peripheral [ Right Pulse Oximetry] Respiratory Rate Blood Pressure 128/70 Blood Pressure [Right Upper Arm] O2 Sat by Pulse Oximetry Weight - Most Recent: 76.839 kg I&O - Last 24 Hours: Intake & Output 10/07/20 10/08/20 10/08/20 22:59 06:59 14:59 Intake Total 240 300 Output Total 250 Balance -10 300 Imaging Impressions - Last 24 Hours: Chest x-ray, portable, shows a small left pleural effusion with additional progressive moderate left lower lobe and inferior left upper lobe atelectasis, pulmonary infiltrates, and some consolidation. Mild cardiomegaly with no significant CHF. Mild aortic valve calcification with no evidence of pneumothorax. Lab Results Last 24 Hours: Laboratory Results - last 24 hr 10/07/20 10/07/20 10/07/20 Range/Units 11:28 17:01 17:25 WBC (4.0-10.2) K/uL RBC (4.33-5.41) M/uL Hgb (13.1-16.8) g/dL Hct (39.0-49.0) % MCV (84.0-98.0) fL MCH (28.2-33.3) pg MCHC (31.7-36.0) g/dL RDW (11.2-14.1) % Plt Count (150-350) K/uL Neut % (Auto) (45.0-80.0) % Lymph % (Auto) (10.0-50.0) % [place] % (Auto) (2.0-14.0) % Eos % (Auto) (0.0-5.0) % Baso % (Auto) (0.0-2.0) % Neut # (Auto) (1.40-7.00) K/uL Lymph # (Auto) (0.50-3.50) K/uL [place] # (Auto) (0.00-1.00) K/uL Eos # (Auto) (0.00-0.50) K/uL Baso # (Auto) (0.00-0.20) K/uL Sodium (136-145) mmol/L Potassium (3.5-5.1) mmol/L Chloride (98-107) mmol/L Carbon Dioxide (21.0-32.0) mmol/L BUN (7-18) mg/dL Creatinine (0.51-1.17) mg/dL Est Cr Clr Drug Dosing mL/min Estimated GFR (MDRD) mL/min Glucose (74-106) mg/dL POC Glucose 192 H 253 H* (65-110) mg/dl Lactic Acid (0.4-2.0) mmol/L Calcium (8.5-10.1) mg/dL Total Bilirubin (0.2-1.0) mg/dL AST (15-37) U/L ALT (12-78) U/L Alkaline Phosphatase (46-116) IU/L Total Protein (6.4-8.2) g/dL Albumin (3.4-5.0) g/dL Specimen Type Urincc Urine Color Yellow Urine Appearance Clear Urine pH 5.0 (5.0-9.0) Ur Specific [place] 1.020 (1.005-1.030) Urine Protein Trace H (NEGATIVE) mg/dL Urine Glucose (UA) 100 H (NEGATIVE) mg/dL Urine Ketones Negative (NEGATIVE) mg/dL Urine Occult Blood Negative (NEGATIVE) Urine Nitrite Negative (NEGATIVE) Urine Bilirubin Negative (NEGATIVE) Urine Urobilinogen 0.2 (0.2-1.0) E.U./dL Ur Leukocyte Esterase Negative (NEGATIVE) Urine RBC 0-5 /HPF Urine WBC Not seen /HPF Ur Epithelial Cells Occasional /LPF Urine Bacteria Occasional (NONE TO FEW) /HPF 10/07/20 10/08/20 10/08/20 Range/Units 20:17 07:00 07:00 WBC 17.1 H (4.0-10.2) K/uL RBC 3.36 L (4.33-5.41) M/uL Hgb 8.6 L (13.1-16.8) g/dL Hct 28.5 L (39.0-49.0) % MCV 84.8 (84.0-98.0) fL MCH 25.6 L (28.2-33.3) pg MCHC 30.2 L (31.7-36.0) g/dL RDW 16.8 H (11.2-14.1) % Plt Count 437 H (150-350) K/uL Neut % (Auto) 80.2 H (45.0-80.0) % Lymph % (Auto) 11.3 (10.0-50.0) % [place] % (Auto) 8.0 (2.0-14.0) % Eos % (Auto) 0.3 (0.0-5.0) % Baso % (Auto) 0.2 (0.0-2.0) % Neut # (Auto) 13.69 H (1.40-7.00) K/uL Lymph # (Auto) 1.93 (0.50-3.50) K/uL [place] # (Auto) 1.37 H (0.00-1.00) K/uL Eos # (Auto) 0.05 (0.00-0.50) K/uL Baso # (Auto) 0.04 (0.00-0.20) K/uL Sodium 138 (136-145) mmol/L Potassium 3.8 (3.5-5.1) mmol/L Chloride 102 (98-107) mmol/L Carbon Dioxide 28.9 (21.0-32.0) mmol/L BUN 14 (7-18) mg/dL Creatinine 0.74 (0.51-1.17) mg/dL Est Cr Clr Drug Dosing 87.97 mL/min Estimated GFR (MDRD) > 60 mL/min Glucose 88 (74-106) mg/dL POC Glucose 208 H (65-110) mg/dl Lactic Acid (0.4-2.0) mmol/L Calcium 8.3 L (8.5-10.1) mg/dL Total Bilirubin 0.5 (0.2-1.0) mg/dL AST 16 (15-37) U/L ALT 16 (12-78) U/L Alkaline Phosphatase 119 H (46-116) IU/L Total Protein 6.4 (6.4-8.2) g/dL Albumin 1.9 L (3.4-5.0) g/dL Specimen Type Urine Color Urine Appearance Urine pH (5.0-9.0) Ur Specific [place] (1.005-1.030) Urine Protein (NEGATIVE) mg/dL Urine Glucose (UA) (NEGATIVE) mg/dL Urine Ketones (NEGATIVE) mg/dL Urine Occult Blood (NEGATIVE) Urine Nitrite (NEGATIVE) Urine Bilirubin (NEGATIVE) Urine Urobilinogen (0.2-1.0) E.U./dL Ur Leukocyte Esterase (NEGATIVE) Urine RBC /HPF Urine WBC /HPF Ur Epithelial Cells /LPF Urine Bacteria (NONE TO FEW) /HPF 10/08/20 10/08/20 Range/Units 07:51 09:10 WBC (4.0-10.2) K/uL RBC (4.33-5.41) M/uL Hgb (13.1-16.8) g/dL Hct (39.0-49.0) % MCV (84.0-98.0) fL MCH (28.2-33.3) pg MCHC (31.7-36.0) g/dL RDW (11.2-14.1) % Plt Count (150-350) K/uL Neut % (Auto) (45.0-80.0) % Lymph % (Auto) (10.0-50.0) % [place] % (Auto) (2.0-14.0) % Eos % (Auto) (0.0-5.0) % Baso % (Auto) (0.0-2.0) % Neut # (Auto) (1.40-7.00) K/uL Lymph # (Auto) (0.50-3.50) K/uL [place] # (Auto) (0.00-1.00) K/uL Eos # (Auto) (0.00-0.50) K/uL Baso # (Auto) (0.00-0.20) K/uL Sodium (136-145) mmol/L Potassium (3.5-5.1) mmol/L Chloride (98-107) mmol/L Carbon Dioxide (21.0-32.0) mmol/L BUN (7-18) mg/dL Creatinine (0.51-1.17) mg/dL Est Cr Clr Drug Dosing mL/min Estimated GFR (MDRD) mL/min Glucose (74-106) mg/dL POC Glucose 92 (65-110) mg/dl Lactic Acid 2.3 H (0.4-2.0) mmol/L Calcium (8.5-10.1) mg/dL Total Bilirubin (0.2-1.0) mg/dL AST (15-37) U/L ALT (12-78) U/L Alkaline Phosphatase (46-116) IU/L Total Protein (6.4-8.2) g/dL Albumin (3.4-5.0) g/dL Specimen Type Urine Color Urine Appearance Urine pH (5.0-9.0) Ur Specific [place] (1.005-1.030) Urine Protein (NEGATIVE) mg/dL Urine Glucose (UA) (NEGATIVE) mg/dL Urine Ketones (NEGATIVE) mg/dL Urine Occult Blood (NEGATIVE) Urine Nitrite (NEGATIVE) Urine Bilirubin (NEGATIVE) Urine Urobilinogen (0.2-1.0) E.U./dL Ur Leukocyte Esterase (NEGATIVE) Urine RBC /HPF Urine WBC /HPF Ur Epithelial Cells /LPF Urine Bacteria (NONE TO FEW) /HPF Michael Results Last 24 Hours: Urine specimen set up for culture and sensitivitypending Med Orders - Current: Current Medications Acetaminophen (Tylenol) 650 mg PO TID [facility] Last Admin: 10/08/20 08:05 Dose: 650 mg Documented by: Acetaminophen (Tylenol) 650 mg PO Q6H PRN PRN Reason: Fever/pain Acetaminophen/Codeine Phosphate (Tylenol With Codeine No.3 300mg/30mg) 1 tab PO Q6H PRN PRN Reason: moderate pain Last Admin: 10/07/20 20:19 Dose: 1 tab Documented by: Al Hydroxide/Mg Hydroxide (Mag-Al Plus) 30 ml PO Q4H PRN PRN Reason: Abdominal Pain Last Admin: 10/04/20 05:29 Dose: 30 ml Documented by: Albuterol (Proventil Hfa) 0 gm INH Q6HR PRN PRN Reason: Wheezing/Shortness of breath Albuterol/Ipratropium (Duoneb 3.0-0.5 Mg/3 Ml) 3 ml INH Q6HR PRN PRN Reason: Shortness Of Breath/Wheezing Last Admin: 10/04/20 12:24 Dose: 3 ml Documented by: Aspirin (Halfprin) 81 mg PO BEDTIME [facility] Last Admin: 10/07/20 20:18 Dose: 81 mg Documented by: Atorvastatin Calcium (Lipitor) 40 mg PO BEDTIME [facility] Last Admin: 10/07/20 20:19 Dose: 40 mg Documented by: Calcium Carbonate (Caltrate 600+D 1500 Mg-400 Units) 1 tab PO DAILY [facility] Last Admin: 10/08/20 08:05 Dose: 1 tab Documented by: Cholecalciferol (Vitamin D3) 25 mcg PO DAILY [facility] Last Admin: 10/08/20 08:03 Dose: 25 mcg Documented by: Cyanocobalamin (Vitamin B12) 1,000 mcg PO DAILY [facility] Last Admin: 10/08/20 08:06 Dose: 1,000 mcg Documented by: Dextrose/Water (Dextrose 50% In Water) 50 ml IV ASDIRECTED PRN PRN Reason: Hypoglycemia Diltiazem HCl (Cardizem Cd) 360 mg PO DAILY [facility] Last Admin: 10/08/20 08:04 Dose: 360 mg Documented by: Ferrous Sulfate (Ferrous Sulfate) 325 mg PO BIDMEALS [facility] Furosemide (Lasix) 20 mg PO DAILY@1200 [facility] Last Admin: 10/07/20 12:00 Dose: 20 mg Documented by: Furosemide (Lasix) 40 mg PO QAM [facility] Last Admin: 10/08/20 08:04 Dose: 40 mg Documented by: Glipizide (Glucotrol) 10 mg PO BIDMEALS [facility] Last Admin: 10/08/20 08:03 Dose: 10 mg Documented by: Glucagon (Glucagen) 1 mg IM ASDIRECTED PRN PRN Reason: Hypoglycemia Hydrocortisone Acetate (Anucort-Hc) 25 mg RECTAL BID PRN PRN Reason: Hemorrhoids Levofloxacin/Dextrose 500 mg/ (Premix) 100 mls @ 100 mls/hr IV Q24H [facility] Insulin Human Lispro (Humalog) 0 unit SUBCUT QIDACANDBED [facility]; Protocol Last Admin: 10/08/20 07:53 Dose: Not Given Documented by: Loperamide HCl (Imodium Ad) 2 mg PO Q6H PRN PRN Reason: Diarrhea Last Admin: 10/04/20 08:10 Dose: 2 mg Documented by: Magnesium Hydroxide (Milk Of Magnesia) 30 ml PO DAILY PRN PRN Reason: Constipation Metformin HCl (Glucophage) 1,000 mg PO BIDMEALS [facility] Last Admin: 10/08/20 08:06 Dose: 1,000 mg Documented by: Metoprolol Succinate (Toprol Xl) 100 mg PO BID [facility] Last Admin: 10/08/20 08:04 Dose: 100 mg Documented by: Mometasone Furoate/Formoterol Fumar (Dulera 200-5 Mcg) 2 puff IH BID [facility] Last Admin: 10/08/20 08:08 Dose: 2 inh Documented by: Dabigatran 150 Mg # (Own Med#) 0 mg PO BID [facility] Last Admin: 10/08/20 08:07 Dose: 1 mg Documented by: Areds 2 Own Med 0 each PO BIDMEALS [facility] Last Admin: 10/08/20 08:06 Dose: 1 each Documented by: Omeprazole (Omeprazole) 20 mg PO BIDMEALS [facility] Last Admin: 10/08/20 08:05 Dose: 20 mg Documented by: Ondansetron HCl (Zofran Odt) 4 mg PO Q4H PRN PRN Reason: Nausea/Vomiting Phenyleph/Shark Oil/Min Oil/Petrol (Preparation H Oint) 0 gm RECTAL ASDIRECTED PRN PRN Reason: Hemorrhoids Polyethylene Glycol (Miralax) 17 gm PO DAILY [facility] Sodium Chloride (Saline Flush) 10 ml FLUSH ASDIRECTED PRN PRN Reason: Keep Vein Open Discontinued Medications Acetaminophen (Tylenol Extra Strength) 1,000 mg PO TID [facility] Last Admin: 10/04/20 17:15 Dose: 1,000 mg Documented by: Amoxicillin/Clavulanate Potassium (Augmentin 875 Mg/125 Mg) 1 tab PO Q12HR [facility] Stop: 10/04/20 20:01 Last Admin: 10/04/20 19:42 Dose: 1 tab Documented by: Atorvastatin Calcium (Lipitor) 40 mg PO DAILY [facility] Last Admin: 10/05/20 07:53 Dose: 40 mg Documented by: Ceftriaxone Sodium (Rocephin) 1 gm IM Q24H [facility] Stop: 10/06/20 09:31 Last Admin: 10/06/20 09:43 Dose: 1 gm Documented by: Ferrous Sulfate (Ferrous Sulfate) 325 mg PO DAILY [facility] Last Admin: 10/08/20 08:05 Dose: 325 mg Documented by: Insulin Human Lispro (Humalog) 0 unit SUBCUT QIDACANDBED [facility]; Protocol Last Admin: 10/03/20 11:27 Dose: 4 units Documented by: Lidocaine HCl (Xylocaine-Mpf 1%) 2.1 ml INJECT Q24H [facility] Stop: 10/06/20 09:31 Last Admin: 10/06/20 09:43 Dose: 2.1 ml Documented by: Calcium Cit 315 Mg- (D3 250 Uni #Own Med#) 1 tab PO BIDMEALS [facility] Last Admin: 10/03/20 14:26 Dose: Not Given Documented by: Polyethylene Glycol (Miralax) 17 gm PO DAILY PRN PRN Reason: Constipation Last Admin: 10/08/20 09:00 Dose: 17 gm Documented by: Tramadol HCl (Ultram) 50 mg PO Q6H PRN PRN Reason: Pain Vit C/Vit E/Zinc/Copper/Lutein (Ocuvite Lutein) Confirm Administered Dose 1 each .ROUTE .[employer] ONE Stop: 10/05/20 07:31 Last Admin: 10/05/20 07:56 Dose: Not Given Documented by: Vit C/Vit E/Zinc/Copper/Lutein (Ocuvite Lutein) Confirm Administered Dose 1 each .ROUTE .[employer] ONE Stop: 10/06/20 07:46 Last Admin: 10/06/20 08:03 Dose: Not Given Documented by: Vit C/Vit E/Zinc/Copper/Lutein (Ocuvite Lutein) Confirm Administered Dose 1 each .ROUTE .[employer] ONE Stop: 10/06/20 17:19 Last Admin: 10/06/20 17:32 Dose: Not Given Documented by: - Exam Quality Assessment: DVT Prophylaxis. No: Supplemental Oxygen, Central Line/PICC, Urine Catheter, Skin Breakdown, Restraints General: Alert, Oriented, Cooperative, No Acute Distress HEENT: Pupils Equal, Pupils Reactive, EOMI, Mucous Membr. Moist/[place] Neck: Supple, Trachea Midline, No JVD, No Thyromegaly. No: Lymphadenopathy Lungs: Decreased Breath Sounds (Left base), Rales (Moderate diffuse mostly left- sided). No: Rhonchi, Rub, Stridor, Wheezing Cardiovascular: No Murmurs, Irregular Rhythm. No: Tachycardia, Gallops, Rubs GI/Abdominal Exam: Normal Bowel Sounds, Soft, Non-Tender, No Organomegaly, No Distention, No Abnormal Bruit, No Mass. No: Guarding (Male) Exam: Deferred Back Exam: Normal Inspection, Full Range of Motion. No: CVA Tenderness (L), CVA Tenderness (R), Muscle Spasm Extremities: Non-Tender (Mild right hip with no instability), No Pedal Edema, Normal Capillary Refill, Limited Range of Motion (Right hip secondary to previous surgery). No: Anthony's Sign Peripheral Pulses: 2+: Radial (L), Radial (R), Dorsalis Pedis (L), Dorsalis Pedis (R) Skin: Ecchymosis (Stable, including and forearms bilaterally) Wound/Incisions: Healing Well Neurological: No New Focal Deficit Psy/Mental Status: Alert, Normal Affect, Normal Mood. No: Agitated, Hallucinations, Withdrawal Symptoms Sepsis Event Note - Evaluation Sepsis Screening Result: No Definite Risk - Focused Exam Vital Signs: Vital Signs Temp Pulse Pulse Resp BP BP Pulse Ox 10/08/20 08:04 98 128/70 10/08/20 08:00 37.5 C 98 24 H 128/70 94 L - Problem List & Annotations (1) COPD (chronic obstructive pulmonary disease) SNOMED Code(s): 59042097 Code(s): J44.9 - CHRONIC OBSTRUCTIVE PULMONARY DISEASE, UNSPECIFIED Status: Chronic Priority: Medium Current Visit: Yes Qualifiers: COPD type: emphysema Emphysema type: panlobular Qualified Code(s): J43.1 - Panlobular emphysema Annotation/Comment:: Note possible postoperative pneumonia based on review of records as above. Patient was to be discharged with antibiotics with history of postoperative sepsis, including positive blood cultures for Staph epidermidis. Patient did have significant leukocytosis with WBCs of 22.1 on 10/06. On-call provider did initiate IM Rocephin therapy for 3 days with return to fever on 11/05 and persistent leukocytosis of 17.1. Blood cultures x2 were redrawn on 10/08. Patient was started on IV Levaquin and IV vancomycin therapy on 10/08. Mild lactic acid elevation on 10/08 with no direct evidence of sepsis at this time. CBC and lactic acid level to be repeated on 10/09 with further repeat blood work on 10/11 with trough vancomycin level. Continue to observe patient status closely with consideration of patient transfer and/or admission to acute care depending on his clinical course. (2) Pneumonia SNOMED Code(s): 988421352 Code(s): J18.9 - PNEUMONIA, UNSPECIFIED ORGANISM Status: Acute Priority: High Current Visit: Yes Onset Date: ~10/06/20 Qualifiers: Pneumonia type: due to other aerobic Gram-negative bacteria Laterality: left Lung location: lower lobe of lung Qualified Code(s): J15.6 - Pneumonia due to other Gram-negative bacteria Annotation/Comment:: As above. (3) Elevated lactic acid level SNOMED Code(s): 0303629 Code(s): R79.89 - OTHER SPECIFIED ABNORMAL FINDINGS OF BLOOD CHEMISTRY Status: Acute Priority: High Current Visit: Yes Onset Date: 10/08/20 Annotation/Comment:: As above (4) Weakness SNOMED Code(s): 03862083 Code(s): R53.1 - WEAKNESS Status: Acute Priority: High Current Visit: Yes Annotation/Comment:: Postoperative weakness with patient admitted to swing bed for PT/OT, and strengthening. Orthopedic follow-up appointments have already been arranged and scheduled. (5) Atrial fibrillation SNOMED Code(s): 69195601 Code(s): I48.91 - UNSPECIFIED ATRIAL FIBRILLATION Status: Chronic Priority: Medium Current Visit: Yes Qualifiers: Atrial fibrillation type: permanent Qualified Code(s): I48.21 - Permanent atrial fibrillation Annotation/Comment:: Currently on Pradaxa. No chest pain or anginal type symptoms despite evidence of CHF and left pleural effusion during recent hospitalization and during his initial swing bed care. Note elevated BNP of 783 on 10/01. Note recent echocardiogram on 09/25/2020 with results as per admission H&P above. (6) CHF (congestive heart failure) SNOMED Code(s): 99098635 Code(s): I50.9 - HEART FAILURE, UNSPECIFIED Status: Chronic Priority: Medium Current Visit: Yes Qualifiers: Heart failure type: systolic Heart failure chronicity: acute on chronic Qualified Code(s): I50.23 - Acute on chronic systolic (congestive) heart failure Annotation/Comment:: As above. Note complete right bundle branch block with T wave inversions in leads V1 through V3 consistent with possible anterior wall cardiac ischemia, however no chest pain or anginal complaints during this hospitalization. (7) Osteoarthritis SNOMED Code(s): 625184380 Code(s): M19.90 - UNSPECIFIED OSTEOARTHRITIS, UNSPECIFIED SITE Status: Chronic Priority: Medium Current Visit: Yes Qualifiers: Osteoarthritis location: multiple joints Osteoarthritis type: primary Qualified Code(s): M89.49 - Other hypertrophic osteoarthropathy, multiple sites Annotation/Comment:: Otherwise stable by history despite recent right hip fracture and ORIF as above. (8) Dyslipidemia SNOMED Code(s): 489519589 Code(s): E78.5 - HYPERLIPIDEMIA, UNSPECIFIED Status: Chronic Priority: Medium Current Visit: Yes Annotation/Comment:: Severe dyslipidemia with HDL of only 18 on 09/30/2020. (9) Diabetes mellitus SNOMED Code(s): 23105823 Code(s): E11.9 - TYPE 2 DIABETES MELLITUS WITHOUT COMPLICATIONS Status: Chronic Priority: Medium Current Visit: Yes Qualifiers: Diabetes mellitus type: type 2 Diabetes mellitus terminal manager insulin use: without fci use Diabetes mellitus complication status: with kidney complications Diabetes mellitus complication detail: with chronic kidney disease Chronic kidney disease stage: stage 3 (moderate) Annotation/Comment:: Patient apparently did need sliding scale during recent hospitalization, however was not on insulin previously. Continue sliding scale for now, with stable Accu-Cheks during this hospitalization. Glycosylated hemoglobin in this facility on 10/03 was elevated at 9.5% with patient possibly needing initiation of insulin therapy after discharge. Note persistent postoperative pneumonia, however as above. (10) Anemia SNOMED Code(s): 115168510 Code(s): D64.9 - ANEMIA, UNSPECIFIED Status: Acute Priority: Medium Current Visit: Yes Qualifiers: Anemia type: iron deficiency Annotation/Comment:: History of postoperative anemia with hemoglobin of 9.2 and mild thrombocytosis on 10/01/2020. Mild progressive anemia during this hospitalization despite of iron sulfate supplementation, including hemoglobin of 8.6 on 10/08, with his iron supplementation increased to twice daily basis on that day. No evidence of acute GI bleed despite problems for his hemorrhoids. Note history of both vitamin B12 and iron deficiency with current supplementation as above. (11) Peptic reflux disease SNOMED Code(s): 429741301 Code(s): K21.9 - GASTRO-ESOPHAGEAL REFLUX DISEASE WITHOUT ESOPHAGITIS Status: Chronic Priority: Medium Current Visit: Yes Annotation/Comment:: Stable by history. Continue current medical therapy. 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 By family history they already have scheduled follow-up evaluations as scheduled at [facility]. (13) Hypocalcemia SNOMED Code(s): 9209915 Code(s): E83.51 - HYPOCALCEMIA Status: Chronic Priority: Medium Current Visit: Yes Onset Date: 10/08/20 Annotation/Comment:: Observe for now (14) Hypoalbuminemia SNOMED Code(s): 622159274 Code(s): E88.09 - OTH DISORDERS OF PLASMA-PROTEIN METABOLISM, NEC Status: Acute Priority: Medium Current Visit: Yes Onset Date: 10/08/20 Annotation/Comment:: Observe for now (15) Constipation SNOMED Code(s): 48709102 Code(s): K59.00 - CONSTIPATION, UNSPECIFIED Status: Chronic Priority: Medium Current Visit: Yes Qualifiers: Constipation type: chronic idiopathic constipation Qualified Code(s): K59.04 - Chronic idiopathic constipation Annotation/Comment:: MiraLAX given today with this medication change to a daily rather than as needed basis. Consider MiraLAX with magnesium citrate depending on his clinical course. - Problem List Review Problem List Initiated/Reviewed/Updated: Yes - My Orders Last 24 Hours: My Active Orders 10/07/20 17:25 CULTURE URINE [RM] Routine 10/08/20 08:48 Magnesium Hydroxide [Milk of Magnesia] 30 ml PO DAILY PRN 10/08/20 09:02 Chest 1V Frontal [CR] Routine Blood Culture x2 Reflex Set [OM.PC] Urgent 10/08/20 09:10 CULTURE BLOOD [BC] Stat 10/08/20 09:20 CULTURE BLOOD [BC] Stat 10/08/20 09:25 Peripheral IV Care [RC] . DIRECTED Sodium Chloride 0.9% [Saline Flush] 10 ml FLUSH ASDIRECTED PRN Peripheral IV Insertion Adult [OM.PC] Routine 10/08/20 09:27 CULTURE SPUTUM + SMEAR [RM] Routine 10/08/20 09:30 Levofloxacin/Dextrose 5%-Water [Levaquin in D5W 500 MG/100 ML] 500 mg Premix Bag 1 bag IV Q24H 10/08/20 09:39 REFLEX LACTIC ACID YES OR NO [CHEM] Routine 10/08/20 17:30 Ferrous Sulfate 325 mg PO BIDMEALS 10/09/20 08:00 polyethylene glycoL 3350 [MiraLAX] 17 gm PO DAILY - Assessment Assessment:: As above - Plan Plan:: As above. Extensive precautions were given to the patient, who is in agreement with the treatment plan. Continue swing bed care with advancement of activity, etc. as per PT/OT.
[2020-10-08] MEDS: Levofloxacin/Dextrose 5%-Water 500 MG in Premix Bag 1 BAG IV SCH (10:18)
[2020-10-08] MEDS: Potassium Chloride 20 MEQ Tab.ER PO SCH ×2 (11:55→18:14)
[2020-10-08] MEDS: Furosemide 40 MG/4 ML VIAL IVPUSH SCH ×2 (11:56→18:14)
[2020-10-08] MEDS: atorvaSTATin 40 MG Tab PO SCH (20:29)
[2020-10-08] MEDS: Aspirin 81 MG Tab.EC PO SCH (20:29)
[2020-10-08] MEDS: Acetaminophen/Codeine 300-30 MG Tab PO PRN (23:13)
[2020-10-09] MEDS ORDERED: Lutein/Minerals/Vitamin C/Vitamin E Acetate Cap ONE (07:59)
[2020-10-09] MEDS: glipiZIDE 5 MG Tab PO SCH ×2 (08:09→17:36)
[2020-10-09] MEDS: Diltiazem 180 MG Cap.CD PO SCH (08:10)
[2020-10-09] MEDS: Calcium Carbonate/Vitamin D3 1500 MG-400 Units Tab PO SCH (08:10)
[2020-10-09] MEDS: metFORMIN 500 MG Tab PO SCH ×2 (08:10→17:36)
[2020-10-09] MEDS: Metoprolol Succinate 50 MG Tab.ER PO SCH ×2 (08:11→17:35)
[2020-10-09] MEDS: Potassium Chloride 20 MEQ Tab.ER PO SCH ×2 (08:11→17:37)
[2020-10-09] MEDS: Ferrous Sulfate 325 MG Tab PO SCH ×2 (08:11→17:37)
[2020-10-09] MEDS: Cholecalciferol (Vitamin D3) 25 MCG Tab PO SCH (08:11)
[2020-10-09] MEDS: Omeprazole 20 MG Cap.CR PO SCH ×2 (08:12→17:37)
[2020-10-09] MEDS: Cyanocobalamin (Vitamin B12) 1,000 MCG Tab PO SCH (08:12)
[2020-10-09] MEDS: INSULIN LISPRO 100 UNIT/ML SUBCUT SCH ×4 (08:12→20:27)
[2020-10-09] MEDS: Acetaminophen 325 MG Tab PO SCH ×3 (08:12→17:35)
[2020-10-09] MEDS: Furosemide 40 MG Tab PO SCH (08:12)
[2020-10-09] MEDS: Polyethylene Glycol 3350 Powder 17 GM Packet PO SCH (08:13)
[2020-10-09] MEDS: Formoterol/Mometasone 200-5 MCG 8.8 GM Inhaler IH SCH ×2 (08:14→17:35)
[2020-10-09] MEDS: AREDS PO SCH ×2 (08:15→17:38)
[2020-10-09] MEDS: DABIGATRAN 150 MG PO SCH ×2 (08:15→17:40)
[2020-10-09] MEDS: Furosemide 40 MG/4 ML VIAL IVPUSH SCH (10:16)
[2020-10-09] MEDS: Levofloxacin/Dextrose 5%-Water 500 MG in Premix Bag 1 BAG IV SCH (11:05)
[2020-10-09] MEDS: Sodium Chloride 0.9% 10 ML Syringe FLUSH PRN ×2 (11:06→13:12)
[2020-10-09] MEDS: Acetaminophen/Codeine 300-30 MG Tab PO PRN (11:10)
[2020-10-09] MEDS: atorvaSTATin 40 MG Tab PO SCH (19:30)
[2020-10-09] MEDS: Aspirin 81 MG Tab.EC PO SCH (19:30)
[2020-10-10] MEDS: glipiZIDE 5 MG Tab PO SCH ×2 (08:01→17:13)
[2020-10-10] MEDS: Polyethylene Glycol 3350 Powder 17 GM Packet PO SCH (08:01)
[2020-10-10] MEDS: Furosemide 40 MG Tab PO SCH (08:02)
[2020-10-10] MEDS: Calcium Carbonate/Vitamin D3 1500 MG-400 Units Tab PO SCH (08:02)
[2020-10-10] MEDS: Ferrous Sulfate 325 MG Tab PO SCH ×2 (08:02→17:17)
[2020-10-10] MEDS: Acetaminophen/Codeine 300-30 MG Tab PO PRN ×2 (08:02→17:16)
[2020-10-10] MEDS: metFORMIN 500 MG Tab PO SCH ×2 (08:03→17:15)
[2020-10-10] MEDS: Omeprazole 20 MG Cap.CR PO SCH ×2 (08:03→17:16)
[2020-10-10] MEDS: Cyanocobalamin (Vitamin B12) 1,000 MCG Tab PO SCH (08:04)
[2020-10-10] MEDS: Diltiazem 180 MG Cap.CD PO SCH (08:04)
[2020-10-10] MEDS: Metoprolol Succinate 50 MG Tab.ER PO SCH ×2 (08:04→17:16)
[2020-10-10] MEDS: INSULIN LISPRO 100 UNIT/ML SUBCUT SCH ×4 (08:04→20:45)
[2020-10-10] MEDS: AREDS PO SCH ×2 (08:05→17:18)
[2020-10-10] MEDS: Formoterol/Mometasone 200-5 MCG 8.8 GM Inhaler IH SCH ×2 (08:05→17:14)
[2020-10-10] MEDS: Cholecalciferol (Vitamin D3) 25 MCG Tab PO SCH (08:05)
[2020-10-10] MEDS: DABIGATRAN 150 MG PO SCH ×2 (08:06→17:17)
[2020-10-10] MEDS: Potassium Chloride 20 MEQ Tab.ER PO SCH ×2 (08:06→17:14)
[2020-10-10] MEDS: Acetaminophen 325 MG Tab PO SCH ×3 (08:20→17:18)
[2020-10-10 09:16] LABS: CHLORIDE,CL 101 mmol/L (98-107); SODIUM,NA 137 mmol/L (136-145)
[2020-10-10] MEDS: Levofloxacin/Dextrose 5%-Water 500 MG in Premix Bag 1 BAG IV SCH (11:02)
[2020-10-10] MEDS: Sodium Chloride 0.9% 10 ML Syringe FLUSH PRN ×2 (11:04→12:13)
[2020-10-10] MEDS: atorvaSTATin 40 MG Tab PO SCH (20:44)
[2020-10-10] MEDS: Aspirin 81 MG Tab.EC PO SCH (20:44)
[2020-10-11] MEDS: Polyethylene Glycol 3350 Powder 17 GM Packet PO SCH (07:59)
[2020-10-11] MEDS: glipiZIDE 5 MG Tab PO SCH ×2 (07:59→16:51)
[2020-10-11] MEDS: Metoprolol Succinate 50 MG Tab.ER PO SCH ×2 (07:59→17:01)
[2020-10-11] MEDS: Cholecalciferol (Vitamin D3) 25 MCG Tab PO SCH (08:00)
[2020-10-11] MEDS: Furosemide 40 MG Tab PO SCH (08:00)
[2020-10-11] MEDS: Diltiazem 180 MG Cap.CD PO SCH (08:00)
[2020-10-11] MEDS: Calcium Carbonate/Vitamin D3 1500 MG-400 Units Tab PO SCH (08:01)
[2020-10-11] MEDS: metFORMIN 500 MG Tab PO SCH ×2 (08:01→16:50)
[2020-10-11] MEDS: Cyanocobalamin (Vitamin B12) 1,000 MCG Tab PO SCH (08:01)
[2020-10-11] MEDS: Omeprazole 20 MG Cap.CR PO SCH ×2 (08:01→16:51)
[2020-10-11] MEDS: Ferrous Sulfate 325 MG Tab PO SCH ×2 (08:01→16:50)
[2020-10-11] MEDS: Potassium Chloride 20 MEQ Tab.ER PO SCH ×2 (08:02→17:00)
[2020-10-11] MEDS: Acetaminophen/Codeine 300-30 MG Tab PO PRN (08:02)
[2020-10-11] MEDS: AREDS PO SCH ×2 (08:03→16:51)
[2020-10-11] MEDS: Formoterol/Mometasone 200-5 MCG 8.8 GM Inhaler IH SCH ×2 (08:04→17:02)
[2020-10-11] MEDS: DABIGATRAN 150 MG PO SCH ×2 (08:04→17:01)
[2020-10-11] MEDS: INSULIN LISPRO 100 UNIT/ML SUBCUT SCH ×4 (08:05→20:32)
[2020-10-11] MEDS: Acetaminophen 325 MG Tab PO SCH ×3 (08:05→17:01)
[2020-10-11] MEDS: Sodium Chloride 0.9% 10 ML Syringe FLUSH PRN ×4 (09:59→23:07)
[2020-10-11] MEDS: Levofloxacin/Dextrose 5%-Water 500 MG in Premix Bag 1 BAG IV SCH (09:59)
[2020-10-11 10:54] LABS: CHLORIDE,CL 99 mmol/L (98-107); SODIUM,NA 136 mmol/L (136-145)
[2020-10-11] MEDS ORDERED: Magnesium Citrate Solution 296 ML Bottle PO ONE (11:59)
[2020-10-11] MEDS ORDERED: Polyethylene Glycol 3350 Powder 17 GM Packet PO ONE (12:01)
[2020-10-11] MEDS ORDERED: Lutein/Minerals/Vitamin C/Vitamin E Acetate Cap ONE (16:48)
[2020-10-11] MEDS: Aspirin 81 MG Tab.EC PO SCH (19:19)
[2020-10-11] MEDS: atorvaSTATin 40 MG Tab PO SCH (19:19)
[2020-10-12] MEDS ORDERED: Lutein/Minerals/Vitamin C/Vitamin E Acetate Cap ONE (07:15)
[2020-10-12] MEDS: Polyethylene Glycol 3350 Powder 17 GM Packet PO SCH (07:36)
[2020-10-12] MEDS: Metoprolol Succinate 50 MG Tab.ER PO SCH ×2 (07:36→17:38)
[2020-10-12] MEDS: Diltiazem 180 MG Cap.CD PO SCH (07:36)
[2020-10-12] MEDS: glipiZIDE 5 MG Tab PO SCH ×2 (07:36→17:33)
[2020-10-12] MEDS: Furosemide 40 MG Tab PO SCH (07:37)
[2020-10-12] MEDS: Cyanocobalamin (Vitamin B12) 1,000 MCG Tab PO SCH (07:37)
[2020-10-12] MEDS: Acetaminophen 325 MG Tab PO SCH ×3 (07:37→17:42)
[2020-10-12] MEDS: Ferrous Sulfate 325 MG Tab PO SCH ×2 (07:37→17:32)
[2020-10-12] MEDS: metFORMIN 500 MG Tab PO SCH ×2 (07:37→17:33)
[2020-10-12] MEDS: Cholecalciferol (Vitamin D3) 25 MCG Tab PO SCH (07:37)
[2020-10-12] MEDS: Calcium Carbonate/Vitamin D3 1500 MG-400 Units Tab PO SCH (07:38)
[2020-10-12] MEDS: Omeprazole 20 MG Cap.CR PO SCH ×2 (07:38→17:33)
[2020-10-12] MEDS: AREDS PO SCH ×2 (07:38→17:39)
[2020-10-12] MEDS: Potassium Chloride 20 MEQ Tab.ER PO SCH ×2 (07:38→17:34)
[2020-10-12] MEDS: INSULIN LISPRO 100 UNIT/ML SUBCUT SCH ×4 (07:39→20:36)
[2020-10-12] MEDS: DABIGATRAN 150 MG PO SCH ×2 (07:39→17:34)
[2020-10-12] MEDS: Formoterol/Mometasone 200-5 MCG 8.8 GM Inhaler IH SCH ×2 (07:40→17:38)
[2020-10-12] MEDS: Levofloxacin/Dextrose 5%-Water 500 MG in Premix Bag 1 BAG IV SCH (10:38)
[2020-10-12] MEDS: Sodium Chloride 0.9% 10 ML Syringe FLUSH PRN ×4 (10:38→23:18)
[2020-10-12] MEDS: Acetaminophen/Codeine 300-30 MG Tab PO PRN (17:33)
[2020-10-12] MEDS: Aspirin 81 MG Tab.EC PO SCH (19:44)
[2020-10-12] MEDS: atorvaSTATin 40 MG Tab PO SCH (19:44)
[2020-10-12] MEDS: Acetaminophen 325 MG Tab PO PRN (21:41)
[2020-10-13] MEDS: Acetaminophen 325 MG Tab PO SCH ×3 (07:24→17:40)
[2020-10-13] MEDS: Polyethylene Glycol 3350 Powder 17 GM Packet PO SCH (07:24)
[2020-10-13] MEDS: Calcium Carbonate/Vitamin D3 1500 MG-400 Units Tab PO SCH (07:25)
[2020-10-13] MEDS: Furosemide 40 MG Tab PO SCH (07:25)
[2020-10-13] MEDS: Diltiazem 180 MG Cap.CD PO SCH (07:25)
[2020-10-13] MEDS: glipiZIDE 5 MG Tab PO SCH ×2 (07:25→17:34)
[2020-10-13] MEDS: Omeprazole 20 MG Cap.CR PO SCH ×2 (07:25→17:35)
[2020-10-13] MEDS: Ferrous Sulfate 325 MG Tab PO SCH ×2 (07:25→17:34)
[2020-10-13] MEDS: Cyanocobalamin (Vitamin B12) 1,000 MCG Tab PO SCH (07:25)
[2020-10-13] MEDS: Potassium Chloride 20 MEQ Tab.ER PO SCH ×2 (07:26→17:39)
[2020-10-13] MEDS: Metoprolol Succinate 50 MG Tab.ER PO SCH ×2 (07:26→17:39)
[2020-10-13] MEDS: Cholecalciferol (Vitamin D3) 25 MCG Tab PO SCH (07:26)
[2020-10-13] MEDS: metFORMIN 500 MG Tab PO SCH ×2 (07:26→17:33)
[2020-10-13] MEDS: DABIGATRAN 150 MG PO SCH ×2 (07:26→17:31)
[2020-10-13] MEDS: INSULIN LISPRO 100 UNIT/ML SUBCUT SCH ×4 (07:27→20:10)
[2020-10-13] MEDS: Formoterol/Mometasone 200-5 MCG 8.8 GM Inhaler IH SCH ×2 (07:27→17:31)
[2020-10-13] MEDS: AREDS PO SCH ×2 (07:27→17:32)
[2020-10-13] MEDS: Acetaminophen/Codeine 300-30 MG Tab PO PRN ×3 (09:05→22:19)
[2020-10-13] MEDS: Levofloxacin/Dextrose 5%-Water 500 MG in Premix Bag 1 BAG IV SCH (10:34)
[2020-10-13] MEDS: Sodium Chloride 0.9% 10 ML Syringe FLUSH PRN ×2 (10:35→19:13)
[2020-10-13 11:20] LABS: CHLORIDE,CL 103 mmol/L (98-107); SODIUM,NA 139 mmol/L (136-145)
[2020-10-13] MEDS: Aspirin 81 MG Tab.EC PO SCH (20:10)
[2020-10-13] MEDS: atorvaSTATin 40 MG Tab PO SCH (20:10)
[2020-10-14] MEDS: metFORMIN 500 MG Tab PO SCH (07:22)
[2020-10-14] MEDS: glipiZIDE 5 MG Tab PO SCH (07:23)
[2020-10-14] MEDS: Acetaminophen 325 MG Tab PO SCH ×3 (07:23→17:31)
[2020-10-14] MEDS: Furosemide 40 MG Tab PO SCH (07:23)
[2020-10-14] MEDS: Cholecalciferol (Vitamin D3) 25 MCG Tab PO SCH (07:24)
[2020-10-14] MEDS: Potassium Chloride 20 MEQ Tab.ER PO SCH (07:24)
[2020-10-14] MEDS: Metoprolol Succinate 50 MG Tab.ER PO SCH ×2 (07:25→17:26)
[2020-10-14] MEDS: Calcium Carbonate/Vitamin D3 1500 MG-400 Units Tab PO SCH (07:25)
[2020-10-14] MEDS: Ferrous Sulfate 325 MG Tab PO SCH ×2 (07:25→17:25)
[2020-10-14] MEDS: Cyanocobalamin (Vitamin B12) 1,000 MCG Tab PO SCH (07:25)
[2020-10-14] MEDS: Diltiazem 180 MG Cap.CD PO SCH (07:26)
[2020-10-14] MEDS: Omeprazole 20 MG Cap.CR PO SCH ×2 (07:26→17:30)
[2020-10-14] MEDS: AREDS PO SCH ×2 (07:28→17:32)
[2020-10-14] MEDS: INSULIN LISPRO 100 UNIT/ML SUBCUT SCH ×4 (07:28→20:14)
[2020-10-14] MEDS: DABIGATRAN 150 MG PO SCH ×2 (07:29→17:31)
[2020-10-14] MEDS: Polyethylene Glycol 3350 Powder 17 GM Packet PO SCH (07:30)
[2020-10-14] MEDS: Formoterol/Mometasone 200-5 MCG 8.8 GM Inhaler IH SCH ×2 (07:30→17:32)
[2020-10-14 08:51] LABS: CHLORIDE,CL 101 mmol/L (98-107); SODIUM,NA 139 mmol/L (136-145)
[2020-10-14] MEDS: Levofloxacin/Dextrose 5%-Water 500 MG in Premix Bag 1 BAG IV SCH (09:22)
[2020-10-14] MEDS: Sodium Chloride 0.9% 10 ML Syringe FLUSH PRN ×2 (09:27→11:29)
[2020-10-14] MEDS ORDERED: Iopamidol 612 MG/ML 100 ML Bottle IVPUSH STA (12:03)
[2020-10-14] MEDS: Acetaminophen/Codeine 300-30 MG Tab PO PRN (14:31)
--- NOTE | 2020-10-14 15:47 | PCM.SN.2 ---
- Free Text/Narrative Note: Patient overall is doing well. Eating/drinking. Only complaint is some increased sensation SOB over last few days. O2 sats stable on 2L NC which patient has required since being admitted to [facility]. He continues to have elevated WBC, currently 16.6. This is improved from a high of 22.1 noted on Oct 06. Overall no change since being started on Vanco/Levaquin for presumed pneumonia on Oct 13. Lactic acid today is 3.2, which has crept upwards since measured on 10/11. He denies cough/sputum production. Blood cultures negative. UA unremarkable with only a few scan colonies of bacteria/gram + cocci noted (not enough to do sensitivity). No other signs or symptoms of new/focal infection. He continues to show left pleural effusion on chest xray. Overall his chest films have been stable. No change in SOB sensation s/p diuresis with Lasix. No clinical evidence of CHF exacerbation/significant fluid overload. Today a CT of the chest was performed to see if any signs of obvious pneumonia/infection noted in addition to the pleural effusion given his increased sensation SOB and continued WBC elevation. Radiology noted numerous small pulmonary nodules, and small right sided effusion. Overall left effusion is stable. Call placed to [place] and patient reviewed with /Hospitalist. Plan developed at that time to have patient's effusion drained and observe if elevated WBC and sensation of SOB improve. Will send fluid sample to lab/cytology for further evaluation. Will continue patient on current antibiotics for time being.
[2020-10-14] MEDS: Aspirin 81 MG Tab.EC PO SCH (20:11)
[2020-10-14] MEDS: atorvaSTATin 40 MG Tab PO SCH (20:11)
[2020-10-14] MEDS: Acetaminophen 325 MG Tab PO PRN (20:23)
[2020-10-15] MEDS: Sodium Chloride 0.9% 10 ML Syringe FLUSH PRN ×3 (06:42→23:12)
[2020-10-15 07:56] LABS: CHLORIDE,CL 102 mmol/L (98-107); SODIUM,NA 139 mmol/L (136-145)
[2020-10-15] MEDS: Polyethylene Glycol 3350 Powder 17 GM Packet PO SCH (09:09)
[2020-10-15] MEDS: INSULIN LISPRO 100 UNIT/ML SUBCUT SCH ×4 (09:09→20:19)
[2020-10-15] MEDS: DABIGATRAN 150 MG PO SCH ×2 (09:10→17:03)
[2020-10-15] MEDS: AREDS PO SCH ×2 (09:10→17:02)
[2020-10-15] MEDS: Formoterol/Mometasone 200-5 MCG 8.8 GM Inhaler IH SCH ×2 (09:10→17:04)
[2020-10-15] MEDS: Metoprolol Succinate 50 MG Tab.ER PO SCH ×2 (09:11→17:06)
[2020-10-15] MEDS: Cholecalciferol (Vitamin D3) 25 MCG Tab PO SCH (09:12)
[2020-10-15] MEDS: Potassium Chloride 20 MEQ Tab.ER PO SCH (09:13)
[2020-10-15] MEDS: Diltiazem 180 MG Cap.CD PO SCH (09:13)
[2020-10-15] MEDS: Omeprazole 20 MG Cap.CR PO SCH ×2 (09:13→17:02)
[2020-10-15] MEDS: Furosemide 40 MG Tab PO SCH (09:14)
[2020-10-15] MEDS: Calcium Carbonate/Vitamin D3 1500 MG-400 Units Tab PO SCH (09:15)
[2020-10-15] MEDS: Ferrous Sulfate 325 MG Tab PO SCH ×2 (09:15→17:02)
[2020-10-15] MEDS: Acetaminophen 325 MG Tab PO SCH ×3 (09:15→17:05)
[2020-10-15] MEDS: Levofloxacin/Dextrose 5%-Water 500 MG in Premix Bag 1 BAG IV SCH (09:16)
[2020-10-15] MEDS: Cyanocobalamin (Vitamin B12) 1,000 MCG Tab PO SCH (09:18)
--- NOTE | 2020-10-15 10:11 | OR ---
Date of Procedure: 10/15/2020 HISTORY: This 80-year-old male has developed a pleural effusion primarily on the left side. A CT scan has identified some nodules in the lung as well. He is having some degree of shortness of breath, and thoracentesis is requested for diagnostic and therapeutic purposes. I reviewed the patient's x-ray and discussed the proposed procedure with the patient, reviewing with him the indications, options, and risks including, but not limited to, bleeding and lung injury. He agreed to have this performed. DESCRIPTION OF PROCEDURE: Ultrasound was used to identify the area of the largest pocket of fluid at the base of the left long. The pleural effusion is loculated. This was noted by both ultrasound and CT scan. The area of the largest collection of the loculated fluid was selected at the base of the lung for tapping. The location of this area was marked on the skin of the back, and then, with the patient sitting, this area was prepped, draped, and the region was anesthetized with Xylocaine. After a small incision had been made, the thoracentesis catheter was advanced over a Veress type needle into this pocket of fluid at the base of the posterior aspect of the left lung. The needle was removed and the catheter was assembled, and using gentle suction with a syringe, approximately 400 mL of a yellow serous fluid was aspirated. A small amount of blood-tinged fluid was noted at the end of the aspiration, but no purulence was identified. After fluid could no longer be aspirated from this area, the catheter was removed and a dressing placed. A postprocedure x-ray was obtained, which appeared to show improvement in the pleural effusion as well as no indication of complication. The patient tolerated the procedure well. Fluid will be submitted for analysis as per his primary care providers. DEBORAH Pena MD /[id number]
[2020-10-15] MEDS: Acetaminophen/Codeine 300-30 MG Tab PO PRN (15:12)
[2020-10-15] MEDS: atorvaSTATin 40 MG Tab PO SCH (20:16)
[2020-10-15] MEDS: Aspirin 81 MG Tab.EC PO SCH (20:16)
[2020-10-16] MEDS: Formoterol/Mometasone 200-5 MCG 8.8 GM Inhaler IH SCH (07:34)
[2020-10-16] MEDS: Cholecalciferol (Vitamin D3) 25 MCG Tab PO SCH (07:35)
[2020-10-16] MEDS: Cyanocobalamin (Vitamin B12) 1,000 MCG Tab PO SCH (07:35)
[2020-10-16] MEDS: Calcium Carbonate/Vitamin D3 1500 MG-400 Units Tab PO SCH (07:35)
[2020-10-16] MEDS: Potassium Chloride 20 MEQ Tab.ER PO SCH (07:35)
[2020-10-16] MEDS: Metoprolol Succinate 50 MG Tab.ER PO SCH (07:35)
[2020-10-16] MEDS: Diltiazem 180 MG Cap.CD PO SCH (07:35)
[2020-10-16] MEDS: Polyethylene Glycol 3350 Powder 17 GM Packet PO SCH (07:35)
[2020-10-16] MEDS: Furosemide 40 MG Tab PO SCH (07:36)
[2020-10-16] MEDS: AREDS PO SCH (07:36)
[2020-10-16] MEDS: Ferrous Sulfate 325 MG Tab PO SCH (07:36)
[2020-10-16] MEDS: Omeprazole 20 MG Cap.CR PO SCH (07:36)
[2020-10-16] MEDS: Acetaminophen 325 MG Tab PO SCH (07:36)
[2020-10-16] MEDS: DABIGATRAN 150 MG PO SCH (07:37)
[2020-10-16] MEDS: INSULIN LISPRO 100 UNIT/ML SUBCUT SCH (07:42)
[2020-10-16 07:43] VITALS: BP 123/64; PULSE 135
[2020-10-16] MEDS: Albuterol/Ipratropium 3.0-0.5 MG/3 ML Neb Soln INH PRN (07:47)
--- NOTE | 2020-10-16 10:34 | PCM.DCSUM1 ---
Discharge Summary - Hospital Course Brief History: Patient admitted for PT/OT after undergoing right ORIF Diagnosis: Stroke: No - Discharge Data Discharge Date: 10/16/20 Discharge Disposition: DC/Tfer to Acute Hospital 02 Condition: Good - Referral to Home Health Primary Care Physician: Rachael Valenzuela MD - Discharge Diagnosis/Problem(s) (1) Hip fracture, right SNOMED Code(s): 066864466 ICD Code: S72.001A - FRACTURE OF UNSP PART OF NECK OF RIGHT FEMUR, INIT Status: Acute Priority: High Current Visit: Yes Problem Details: Recent right hip fracture and s/p ORIF. Transfered to [place] for PT/OT Qualifiers: Encounter type: sequela (2) Pneumonia SNOMED Code(s): 308714596 ICD Code: J18.9 - PNEUMONIA, UNSPECIFIED ORGANISM Status: Acute Priority: High Current Visit: Yes Onset Date: ~10/06/20 Problem Details: Suspected pneumonia left mid/lower lung areas. Also pleural effusion. Afebrile. Increased SOB. Minimal cough. Treated with Rocephin for several days then switched to Levaquin and Vanco. Negative blood cultures. Qualifiers: Pneumonia type: due to unspecified organism Laterality: left Lung location: lower lobe of lung Qualified Code(s): J18.9 - Pneumonia, unspecified organism (3) Pulmonary nodules/lesions, multiple SNOMED Code(s): 110106121 ICD Code: R91.8 - OTHER NONSPECIFIC ABNORMAL FINDING OF LUNG FIELD Status: Chronic Priority: Medium Current Visit: Yes Problem Details: Repeat CT shows multiple lesions and adenopathy. One lesion is spiculated in appearance and has grown since last chest CT per Radiology. (4) Recurrent pleural effusion on left SNOMED Code(s): 76122154, 86271511 ICD Code: J90 - PLEURAL EFFUSION, NOT ELSEWHERE CLASSIFIED Status: Chronic Priority: Medium Current Visit: Yes Problem Details: History chronic issues with pleural effusions on left in addition to pneumonias. Effusion tapped 10/15. Fluid sent for cytology and culture. (5) Anemia SNOMED Code(s): 920428955 ICD Code: D64.9 - ANEMIA, UNSPECIFIED Status: Acute Priority: Medium Current Visit: Yes Problem Details: History of postoperative anemia with hemoglobin of 9.2 and mild thrombocytosis on 10/01/2020. Now 7.9 on 10/16. Iron supplementation increased to twice daily basis during stay. No evidence of acute GI bleed despite problems for his hemorrhoids. Note history of both vitamin B12 and iron deficiency. Qualifiers: Anemia type: iron deficiency (6) Elevated lactic acid level SNOMED Code(s): 5918930 ICD Code: R79.89 - OTHER SPECIFIED ABNORMAL FINDINGS OF BLOOD CHEMISTRY Status: Acute Priority: High Current Visit: Yes Onset Date: 10/08/20 Problem Details: resolved on 10/15 (7) Weakness SNOMED Code(s): 25751298 ICD Code: R53.1 - WEAKNESS Status: Acute Priority: High Current Visit: Yes Problem Details: Postoperative weakness with patient admitted to swing bed for PT/OT, and strengthening. Orthopedic follow-up appointments have already been arranged and scheduled. (8) Atrial fibrillation SNOMED Code(s): 42453030 ICD Code: I48.91 - UNSPECIFIED ATRIAL FIBRILLATION Status: Chronic Priority: Medium Current Visit: Yes Problem Details: Currently on Pradaxa. No chest pain or anginal type symptoms despite evidence of CHF and left pleural effusion during recent hospitalization and during his initial swing bed care. Note elevated BNP of 783 on 10/01. Note recent echocardiogram on 09/25/2020 with results as per admission H&P above. Qualifiers: Atrial fibrillation type: permanent Qualified Code(s): I48.21 - Permanent atrial fibrillation (9) CHF (congestive heart failure) SNOMED Code(s): 22671503 ICD Code: I50.9 - HEART FAILURE, UNSPECIFIED Status: Chronic Priority: Medium Current Visit: Yes Problem Details: As above. Note complete right bundle branch block with T wave inversions in leads V1 through V3 consistent with possible anterior wall cardiac ischemia, however no chest pain or anginal complaints during this hospitalization. Qualifiers: Heart failure type: systolic Heart failure chronicity: acute on chronic Qualified Code(s): I50.23 - Acute on chronic systolic (congestive) heart failure (10) COPD (chronic obstructive pulmonary disease) SNOMED Code(s): 30503903 ICD Code: J44.9 - CHRONIC OBSTRUCTIVE PULMONARY DISEASE, UNSPECIFIED Status: Chronic Priority: Medium Current Visit: Yes Problem Details: O2 dependent at home. Qualifiers: COPD type: emphysema Emphysema type: panlobular Qualified Code(s): J43.1 - Panlobular emphysema (11) Carotid artery occlusion Status: Chronic Priority: High Current Visit: Yes Onset Date: ~10/01/20 Problem Details: Note bilateral disease by carotid artery Doppler studies with mostly right-sided disease by CTA of the neck on 09/30/2020. By family history they already have scheduled follow-up evaluations as scheduled at [facility]. Qualifiers: Laterality: bilateral Qualified Code(s): I65.23 - Occlusion and stenosis of bilateral carotid arteries (12) Diabetes mellitus SNOMED Code(s): 95249377 ICD Code: E11.9 - TYPE 2 DIABETES MELLITUS WITHOUT COMPLICATIONS Status: Chronic Priority: Medium Current Visit: Yes Problem Details: Patient apparently did need sliding scale during recent hospitalization, however was not on insulin previously. Accuchecks have varied widely, with some as low as 70s and others well into the 200s. Glycosylated hemoglobin in this facility on 10/03 was elevated at 9.5% with patient possibly needing initiation of insulin therapy after discharge. Note persistent postoperative pneumonia, however as above. Qualifiers: Diabetes mellitus type: type 2 Diabetes mellitus supervisor intermediates insulin use: without senior living use Diabetes mellitus complication status: with kidney complications Diabetes mellitus complication detail: with chronic kidney disease Chronic kidney disease stage: stage 3 (moderate) (13) Dyslipidemia SNOMED Code(s): 372663918 ICD Code: E78.5 - HYPERLIPIDEMIA, UNSPECIFIED Status: Chronic Priority: Medium Current Visit: Yes Problem Details: Severe dyslipidemia with HDL of only 18 on 09/30/2020. (14) Osteoarthritis SNOMED Code(s): 467245125 ICD Code: M19.90 - UNSPECIFIED OSTEOARTHRITIS, UNSPECIFIED SITE Status: Chronic Priority: Medium Current Visit: Yes Problem Details: Otherwise stable by history despite recent right hip fracture and ORIF as above. Qualifiers: Osteoarthritis location: multiple joints Osteoarthritis type: primary Qualified Code(s): M89.49 - Other hypertrophic osteoarthropathy, multiple sites (15) Peptic reflux disease SNOMED Code(s): 161514849 ICD Code: K21.9 - GASTRO-ESOPHAGEAL REFLUX DISEASE WITHOUT ESOPHAGITIS Status: Chronic Priority: Medium Current Visit: Yes Problem Details: Stable by history. Continue current medical therapy. - Patient Summary/Data Consults: Consultations 10/02/20 20:06 Consult to Case Management/Brand Analyst [CONS] Routine OT Evaluation and Treatment [CONS] Routine PT Evaluation and Treatment [CONS] Routine Hospital Course: Patient admitted for PT/OT. Remained afebrile. Did progress with strength while working with therapy. Noted to develop increasing WBC. Patient was without any specific new complaints. No increased SOB/new cough. Negative blood cultures/UA. Has history chronic issues left sided pleural effusion and repeated pneumonia. Also multiple pulmonary nodules. Recent bacteremia while a patient at [facility]. Rocephin initiated for possible developing pneumonia which was later changed to Levaquin and Vanco on Oct 13. WBC has remained elevated however. Lactic acid did go up to 3 but normalized as of 10/15. Patient reporting increased SOB 10/14 but vital signs stable. No change with SOB with [place]. He has O2 at home and continued to use 1-2 liters NC here while on Swing Bed. Serial chest xrays showed persistent left pleural effusion and question of possible abscess on left side that did not change with antibiotic therapy. Chest CT obtained 10/13 showed the chronic nodules/one with spiculated appearance/effusions and changes that could reflect pneumonia. No abscess noted on CT. Note that pt had negative PE study late August and chest CT at [facility] last month. Radiology mentioned reactive nodes in addition to multiple pulmonary nodules. Patient has long history of nodules, however one with with spiculated appearance appears to have become larger. Call placed to [facility] that day and patient reviewed with . It was decided at that time to continue current antibiotics and see if tapping pleural effusion helped sensation of SOB. Fluid tapped yesterday (patient has required to be tapped in past due to large effusions twice before) and fluid sent for culture and cytology. Reactive WBC noted, but no atypical cells indicating malignancy mentioned. Patient subjectively feels that it is easier to breathe today but was noted to have overall elevated respiratory rate compared to rest of stay. He has also been chronically tachycardic since arrival with rates 100- 110, but today is up to 130s. Desat to mid 80s when standing while on one liter NC O2 noted, which is lower than usual for patient. Given the persistent elevated WBC and worsening tachycardia/SOB it was decided that patient would benefit from further evaluation in [place]. He was cleared to be transferred back to [facility] by the [facility]/spoke to [facility]/gas transfer operator at [place] to verify. Call placed to [facility] and patient reviewed with Dr. Denson. She agreed that his progressive changes are a bit worrying and that he would benefit from possible biopsy/PET scan to rule out lung tumor given the spiculated mass/left sided effusions and overall lack of improvement to antibiotics. Patient will be transferred by EMS to [facility] once bed confirmation is received. - Discharge Plan Home Medications: Home Meds Acetaminophen [Acetaminophen Extra Strength] 1,000 mg PO TID 10/02/20 [History] Albuterol Sulfate [Albuterol Sulfate Hfa] 2 puff INH Q6HR PRN 10/02/20 [History] Albuterol/Ipratropium [DuoNeb 3.0-0.5 MG/3 ML] 1 ampule INH Q6HR PRN 10/02/20 [History] Aspirin [Aspirin EC] 81 mg PO BEDTIME 10/02/20 [History] Budesonide/Formoterol [Symbicort 160-4.5 MCG] 2 puff INH BID 10/02/20 [History] Calcium Citrate/Vitamin D3 [Calcium Cit 315 mg-D3 250 Unit] 1 tab PO BIDMEALS 10/02/20 [History] Cholecalciferol (Vitamin D3) [Vitamin D] 1,000 unit PO DAILY 10/02/20 [History] Cyanocobalamin (Vitamin B12) [Vitamin B12] 1,000 mcg PO DAILY 10/02/20 [History] Dabigatran [Pradaxa] 150 mg PO BID 10/02/20 [History] Ferrous Sulfate 325 mg PO DAILY 10/02/20 [History] Furosemide [Lasix] 20 mg PO DAILY@1200 10/02/20 [History] Furosemide [Lasix] 40 mg PO QAM 10/02/20 [History] Hydrocortisone Acetate 25 mg RECTAL BID PRN 10/02/20 [History] Metoprolol Succinate [Toprol Xl] 100 mg PO BID 10/02/20 [History] Omeprazole 20 mg PO BIDMEALS 10/02/20 [History] atorvaSTATin [Lipitor] 40 mg PO DAILY 10/02/20 [History] dilTIAZem HCL [Tiazac] 360 mg PO DAILY 10/02/20 [History] glipiZIDE [Glucotrol] 10 mg PO BIDMEALS 10/02/20 [History] metFORMIN HCl [Glucophage] 1,000 mg PO BIDMEALS 10/02/20 [History] polyethylene glycoL 3350 [MiraLAX] 17 gm PO DAILY PRN 10/02/20 [History] Vit C/E/Zn/Coppr/Lutein/Zeaxan [Preservision Areds 2 Softgel] 1 each PO BIDMEALS 10/03/20 [History] - Discharge Summary/Plan Comment DC Time >30 min.: Yes (waiting for bed confirmation [facility]) - General Info Date of Service: 10/16/20 Admission Dx/Problem (Free Text: Admission Diagnosis/Problem Weakness s/p right hip fracture and ORIF. In need of PT and OT. Recent sepsis. Subjective Update: Patient still feels SOB but it is improved compared to yesterday. Denies any acute changes/new pain. Eating well. Functional Status: Reports: Pain Controlled, Tolerating Diet, Urinating - Review of Systems General: Reports: Weakness (improving). Denies: Fever, Chills HEENT: Denies: Headaches, Sinus Congestion, Sore Throat, Rhinitis, Visual Changes Pulmonary: Reports: Shortness of Breath. Denies: Pleuritic Chest Pain, Cough, Sputum, Hemoptysis, Wheezing Cardiovascular: Reports: Dyspnea on Exertion. Denies: Chest Pain, Lightheadedness Gastrointestinal: Denies: Abdominal Pain, Constipation, Diarrhea, Nausea, Vomiting Genitourinary: Reports: No Symptoms Musculoskeletal: Reports: Other (no acute changes. Right hip is improving slowly. ) Skin: Reports: Other (no acute changes) Neurological: Reports: Difficulty Walking (s/p right hip fracture). Denies: Confusion, Dizziness, Headache, Numbness Psychiatric: Reports: No Symptoms - Patient Data Vitals - Most Recent: Last Vital Signs Temp 37.6 C 10/16/20 08:00 Pulse 135 H 10/16/20 08:00 Resp 26 H 10/16/20 08:00 BP 123/64 10/16/20 08:00 Pulse Ox 94 L 10/16/20 08:00 Weight - Most Recent: 78.245 kg I&O - Last 24 hours: Intake & Output 10/15/20 10/16/20 10/16/20 22:59 06:59 14:59 Intake Total 710 250 360 Balance 710 250 360 Lab Results - Last 24 hrs: Laboratory Results - last 24 hr 10/13/20 10/15/20 10/15/20 Range/Units 11:00 10:53 17:01 WBC (4.0-10.2) K/uL RBC (4.33-5.41) M/uL Hgb (13.1-16.8) g/dL Hct (39.0-49.0) % MCV (84.0-98.0) fL MCH (28.2-33.3) pg MCHC (31.7-36.0) g/dL RDW (11.2-14.1) % Plt Count (150-350) K/uL Neut % (Auto) (45.0-80.0) % Lymph % (Auto) (10.0-50.0) % [place] % (Auto) (2.0-14.0) % Eos % (Auto) (0.0-5.0) % Baso % (Auto) (0.0-2.0) % Neut # (Auto) (1.40-7.00) K/uL Lymph # (Auto) (0.50-3.50) K/uL [place] # (Auto) (0.00-1.00) K/uL Eos # (Auto) (0.00-0.50) K/uL Baso # (Auto) (0.00-0.20) K/uL Neutrophils % (Manual) 80 % Band Neuts % (Manual) 7 % Lymphocytes % (Manual) 5 % Monocytes % (Manual) 6 % Eosinophils % (Manual) 2 % Basophils % (Manual) 0 % Neutrophils # (Manual) 12.08 H (1.80-7.00) x10-3 ul Band Neutrophils # Man 1.06 H (0.00-0.70) x10-3 ul Lymphocytes # (Manual) 0.76 L (1.00-4.80) x10-3 ul Monocytes # (Manual) 0.91 H (0.00-0.80) x10-3 ul Eosinophils # (Manual) 0.30 (0.00-0.45) x10-3 ul Basophils # (Manual) 0.00 (0.00-0.20) x10-3 ul RBC/WBC/PLT Morphology Abnormal (Normal) Vacuolated Neuts Seen Platelet Estimate Adequate Polychromasia 1+ /hpf Hypochromasia 3+ /hpf Tear Drop Cells 1+ /hpf Ovalocytes 2+ /hpf Rouleaux Seen (Absent) RBC Fragments 1+ /hpf Smear Path Review Path rpt POC Glucose 226 H 205 H (65-110) mg/dl 10/15/20 10/16/20 Range/Units 20:19 09:04 WBC 14.4 H (4.0-10.2) K/uL RBC 3.11 L (4.33-5.41) M/uL Hgb 7.8 L (13.1-16.8) g/dL Hct 26.2 L (39.0-49.0) % MCV 84.2 (84.0-98.0) fL MCH 25.1 L (28.2-33.3) pg MCHC 29.8 L (31.7-36.0) g/dL RDW 17.4 H (11.2-14.1) % Plt Count 328 (150-350) K/uL Neut % (Auto) 82.1 H (45.0-80.0) % Lymph % (Auto) 9.1 L (10.0-50.0) % [place] % (Auto) 7.4 (2.0-14.0) % Eos % (Auto) 1.2 (0.0-5.0) % Baso % (Auto) 0.2 (0.0-2.0) % Neut # (Auto) 11.80 H (1.40-7.00) K/uL Lymph # (Auto) 1.31 (0.50-3.50) K/uL [place] # (Auto) 1.07 H (0.00-1.00) K/uL Eos # (Auto) 0.17 (0.00-0.50) K/uL Baso # (Auto) 0.03 (0.00-0.20) K/uL Neutrophils % (Manual) % Band Neuts % (Manual) % Lymphocytes % (Manual) % Monocytes % (Manual) % Eosinophils % (Manual) % Basophils % (Manual) % Neutrophils # (Manual) (1.80-7.00) x10-3 ul Band Neutrophils # Man (0.00-0.70) x10-3 ul Lymphocytes # (Manual) (1.00-4.80) x10-3 ul Monocytes # (Manual) (0.00-0.80) x10-3 ul Eosinophils # (Manual) (0.00-0.45) x10-3 ul Basophils # (Manual) (0.00-0.20) x10-3 ul RBC/WBC/PLT Morphology (Normal) Vacuolated Neuts Platelet Estimate Polychromasia /hpf Hypochromasia /hpf Tear Drop Cells /hpf Ovalocytes /hpf Rouleaux (Absent) RBC Fragments /hpf Smear Path Review POC Glucose 275 H* (65-110) mg/dl KASANDRA Results - Last 24 hrs: Microbiology 10/14/20 19:25 Stool Occult Blood (KASANDRA) - Final Stool / Feces NEGATIVE OCCULT BLOOD REFERENCE RANGE: NEGATIVE Med Orders - Current: Current Medications Acetaminophen (Tylenol) 650 mg PO TID [facility] Last Admin: 10/16/20 07:36 Dose: 650 mg Documented by: Acetaminophen (Tylenol) 650 mg PO Q6H PRN PRN Reason: Fever/pain Last Admin: 10/14/20 20:23 Dose: 650 mg Documented by: Acetaminophen/Codeine Phosphate (Tylenol With Codeine No.3 300mg/30mg) 1 tab PO Q6H PRN PRN Reason: moderate pain Last Admin: 10/15/20 15:12 Dose: 1 tab Documented by: Al Hydroxide/Mg Hydroxide (Mag-Al Plus) 30 ml PO Q4H PRN PRN Reason: Abdominal Pain Last Admin: 10/04/20 05:29 Dose: 30 ml Documented by: Albuterol (Proventil Hfa) 0 gm INH Q6HR PRN PRN Reason: Wheezing/Shortness of breath Albuterol/Ipratropium (Duoneb 3.0-0.5 Mg/3 Ml) 3 ml INH Q6HR PRN PRN Reason: Shortness Of Breath/Wheezing Last Admin: 10/16/20 07:47 Dose: 3 ml Documented by: Aspirin (Halfprin) 81 mg PO BEDTIME [facility] Last Admin: 10/15/20 20:16 Dose: 81 mg Documented by: Atorvastatin Calcium (Lipitor) 40 mg PO BEDTIME [facility] Last Admin: 10/15/20 20:16 Dose: 40 mg Documented by: Calcium Carbonate (Caltrate 600+D 1500 Mg-400 Units) 1 tab PO DAILY [facility] Last Admin: 10/16/20 07:35 Dose: 1 tab Documented by: Cholecalciferol (Vitamin D3) 25 mcg PO DAILY [facility] Last Admin: 10/16/20 07:35 Dose: 25 mcg Documented by: Cyanocobalamin (Vitamin B12) 1,000 mcg PO DAILY [facility] Last Admin: 10/16/20 07:35 Dose: 1,000 mcg Documented by: Dextrose/Water (Dextrose 50% In Water) 50 ml IV ASDIRECTED PRN PRN Reason: Hypoglycemia Diltiazem HCl (Cardizem Cd) 360 mg PO DAILY [facility] Last Admin: 10/16/20 07:35 Dose: 360 mg Documented by: Ferrous Sulfate (Ferrous Sulfate) 325 mg PO BIDMEALS [facility] Last Admin: 10/16/20 07:36 Dose: 325 mg Documented by: Furosemide (Lasix) 40 mg PO QAM [facility] Last Admin: 10/16/20 07:36 Dose: 40 mg Documented by: Glipizide (Glucotrol) 10 mg PO BIDMEALS [facility] Last Admin: 10/14/20 07:23 Dose: 10 mg Documented by: Glucagon (Glucagen) 1 mg IM ASDIRECTED PRN PRN Reason: Hypoglycemia Hydrocortisone Acetate (Anucort-Hc) 25 mg RECTAL BID PRN PRN Reason: Hemorrhoids Levofloxacin/Dextrose 500 mg/ (Premix) 100 mls @ 100 mls/hr IV Q24H [facility] Last Admin: 10/15/20 09:16 Dose: 100 mls/hr Documented by: Vancomycin HCl 1 gm/ Sodium (Chloride) 250 mls @ 165 mls/hr IV Q18H [facility] Last Admin: 10/15/20 23:12 Dose: 165 mls/hr Documented by: Insulin Human Lispro (Humalog) 0 unit SUBCUT QIDACANDBED [facility]; Protocol Last Admin: 10/16/20 07:42 Dose: 2 units Documented by: Loperamide HCl (Imodium Ad) 2 mg PO Q6H PRN PRN Reason: Diarrhea Last Admin: 10/04/20 08:10 Dose: 2 mg Documented by: Magnesium Hydroxide (Milk Of Magnesia) 30 ml PO DAILY PRN PRN Reason: Constipation Last Admin: 10/10/20 12:10 Dose: 30 ml Documented by: Metformin HCl (Glucophage) 1,000 mg PO BIDMEALS [facility] Last Admin: 10/14/20 07:22 Dose: 1,000 mg Documented by: Metoprolol Succinate (Toprol Xl) 100 mg PO BID [facility] Last Admin: 10/16/20 07:35 Dose: 100 mg Documented by: Mometasone Furoate/Formoterol Fumar (Dulera 200-5 Mcg) 2 puff IH BID [facility] Last Admin: 10/16/20 07:34 Dose: 2 inh Documented by: Dabigatran 150 Mg # (Own Med#) 0 mg PO BID [facility] Last Admin: 10/16/20 07:37 Dose: 1 mg Documented by: Areds 2 Own Med 0 each PO BIDMEALS [facility] Last Admin: 10/16/20 07:36 Dose: 1 each Documented by: Omeprazole (Omeprazole) 20 mg PO BIDMEALS [facility] Last Admin: 10/16/20 07:36 Dose: 20 mg Documented by: Ondansetron HCl (Zofran Odt) 4 mg PO Q4H PRN PRN Reason: Nausea/Vomiting Last Admin: 10/11/20 12:09 Dose: 4 mg Documented by: Phenyleph/Shark Oil/Min Oil/Petrol (Preparation H Oint) 0 gm RECTAL ASDIRECTED PRN PRN Reason: Hemorrhoids Polyethylene Glycol (Miralax) 17 gm PO DAILY [facility] Last Admin: 10/16/20 07:35 Dose: 17 gm Documented by: Potassium Chloride (Klor-Con M20) 20 meq PO DAILY [facility] Last Admin: 10/16/20 07:35 Dose: 20 meq Documented by: Sodium Chloride (Saline Flush) 10 ml FLUSH ASDIRECTED PRN PRN Reason: Keep Vein Open Last Admin: 10/15/20 23:12 Dose: 10 ml Documented by: Vancomycin HCl (Pharmacy To Dose - Vancomycin) 1 dose .XX ASDIRECTED [facility] Discontinued Medications Acetaminophen (Tylenol Extra Strength) 1,000 mg PO TID [facility] Last Admin: 10/04/20 17:15 Dose: 1,000 mg Documented by: Amoxicillin/Clavulanate Potassium (Augmentin 875 Mg/125 Mg) 1 tab PO Q12HR [facility] Stop: 10/04/20 20:01 Last Admin: 10/04/20 19:42 Dose: 1 tab Documented by: Atorvastatin Calcium (Lipitor) 40 mg PO DAILY [facility] Last Admin: 10/05/20 07:53 Dose: 40 mg Documented by: Ceftriaxone Sodium (Rocephin) 1 gm IM Q24H [facility] Stop: 10/06/20 09:31 Last Admin: 10/06/20 09:43 Dose: 1 gm Documented by: Ferrous Sulfate (Ferrous Sulfate) 325 mg PO DAILY [facility] Last Admin: 10/08/20 08:05 Dose: 325 mg Documented by: Furosemide (Lasix) 20 mg PO DAILY@1200 [facility] Last Admin: 10/07/20 12:00 Dose: 20 mg Documented by: Furosemide (Lasix) 40 mg IVPUSH BID [facility] Last Admin: 10/09/20 10:16 Dose: Not Given Documented by: Vancomycin HCl 1 gm/ Sodium (Chloride) 250 mls @ 165 mls/hr IV Q24H [facility] Last Admin: 10/10/20 12:12 Dose: 165 mls/hr Documented by: Vancomycin HCl 1 gm/ Sodium (Chloride) 250 mls @ 165 mls/hr IV Q12H [facility] Last Admin: 10/12/20 23:15 Dose: 165 mls/hr Documented by: Insulin Human Lispro (Humalog) 0 unit SUBCUT QIDACANDBED [facility]; Protocol Last Admin: 10/03/20 11:27 Dose: 4 units Documented by: Iopamidol (Isovue-300 (61%)) 100 ml IVPUSH ONETIME STA Stop: 10/14/20 12:04 Last Admin: 10/14/20 13:34 Dose: 100 ml Documented by: Lidocaine HCl (Xylocaine-Mpf 1%) 2.1 ml INJECT Q24H [facility] Stop: 10/06/20 09:31 Last Admin: 10/06/20 09:43 Dose: 2.1 ml Documented by: Magnesium Citrate (Citrate Of Magnesia) 296 ml PO ONETIME ONE Stop: 10/11/20 12:00 Last Admin: 10/11/20 12:09 Dose: 296 ml Documented by: Calcium Cit 315 Mg- (D3 250 Uni #Own Med#) 1 tab PO BIDMEALS [facility] Last Admin: 10/03/20 14:26 Dose: Not Given Documented by: Polyethylene Glycol (Miralax) 17 gm PO DAILY PRN PRN Reason: Constipation Last Admin: 10/08/20 09:00 Dose: 17 gm Documented by: Polyethylene Glycol (Miralax) 17 gm PO ONETIME ONE Stop: 10/11/20 12:02 Last Admin: 10/11/20 12:09 Dose: 17 gm Documented by: Potassium Chloride (Klor-Con M20) 20 meq PO BID [facility] Last Admin: 10/14/20 07:24 Dose: 20 meq Documented by: Tramadol HCl (Ultram) 50 mg PO Q6H PRN PRN Reason: Pain Vit C/Vit E/Zinc/Copper/Lutein (Ocuvite Lutein) Confirm Administered Dose 1 each .ROUTE .[facility] ONE Stop: 10/05/20 07:31 Last Admin: 10/05/20 07:56 Dose: Not Given Documented by: Vit C/Vit E/Zinc/Copper/Lutein (Ocuvite Lutein) Confirm Administered Dose 1 each .ROUTE .[facility] ONE Stop: 10/06/20 07:46 Last Admin: 10/06/20 08:03 Dose: Not Given Documented by: Vit C/Vit E/Zinc/Copper/Lutein (Ocuvite Lutein) Confirm Administered Dose 1 each .ROUTE .[facility] ONE Stop: 10/06/20 17:19 Last Admin: 10/06/20 17:32 Dose: Not Given Documented by: Vit C/Vit E/Zinc/Copper/Lutein (Ocuvite Lutein) Confirm Administered Dose 1 each .ROUTE .[facility] ONE Stop: 10/09/20 08:00 Last Admin: 10/09/20 08:10 Dose: Not Given Documented by: Vit C/Vit E/Zinc/Copper/Lutein (Ocuvite Lutein) Confirm Administered Dose 1 each .ROUTE .[facility] ONE Stop: 10/11/20 16:49 Last Admin: 10/11/20 17:01 Dose: 1 each Documented by: Vit C/Vit E/Zinc/Copper/Lutein (Ocuvite Lutein) Confirm Administered Dose 1 [facility] Stop: 10/12/20 07:16 Last Admin: 10/12/20 07:38 Dose: Not Given Documented by: - Exam Quality Assessment: Reports: Supplemental Oxygen General: Reports: Alert, Oriented, Cooperative HEENT: Reports: Pupils Equal, Pupils Reactive, EOMI, Mucous Membr. Moist/[place] Neck: Reports: Supple Lungs: Reports: Decreased Breath Sounds (left mid and lower lung), Crackles (lung bases), Other (tachypnea). Denies: Rales, Rhonchi, Rub, Stridor, Wheezing Cardiovascular: Reports: Tachycardia GI/Abdominal Exam: Soft, Non-Tender (Male) Exam: Deferred Rectal (Males) Exam: Deferred Back Exam: Denies: CVA Tenderness (L), CVA Tenderness (R), Muscle Spasm Extremities: Normal Capillary Refill Skin: Reports: Warm Neurological: Reports: No New Focal Deficit Psy/Mental Status: Reports: Alert, Normal Affect, Normal Mood
== END 2020-10-16 11:45 | DRG 947 ==
LOC: LL.MS 15:20
PROVIDERS: ADMIT Family Medicine; ATTEND Family Medicine
PROC: 0W9B3ZZ Drainage of Left Pleural Cavity, Percutaneous Approach (ICD-10-PCS; principal; 2020-10-15)
DX: R53.81 Other malaise (principal); J15.6 Pneumonia due to other Gram-negative bacteria; J90 Pleural effusion, not elsewhere classified; I48.21 Permanent atrial fibrillation; I13.0 Hypertensive heart and chronic kidney disease with heart failure and stage 1 through stage 4 chronic kidney disease, or unspecified chronic kidney disease; I50.22 Chronic systolic (congestive) heart failure; R91.8 Other nonspecific abnormal finding of lung field; S72.001D Fracture of unspecified part of neck of right femur, subsequent encounter for closed fracture with routine healing; D50.9 Iron deficiency anemia, unspecified; J43.1 Panlobular emphysema; I65.23 Occlusion and stenosis of bilateral carotid arteries; N18.30 Chronic kidney disease, stage 3 unspecified; E78.5 Hyperlipidemia, unspecified; M89.49 Other hypertrophic osteoarthropathy, multiple sites; K21.9 Gastro-esophageal reflux disease without esophagitis; R91.1 Solitary pulmonary nodule; R00.0 Tachycardia, unspecified; H54.7 Unspecified visual loss; E78.00 Pure hypercholesterolemia, unspecified; K44.9 Diaphragmatic hernia without obstruction or gangrene; K76.0 Fatty (change of) liver, not elsewhere classified; E11.22 Type 2 diabetes mellitus with diabetic chronic kidney disease; E11.21 Type 2 diabetes mellitus with diabetic nephropathy; N40.1 Benign prostatic hyperplasia with lower urinary tract symptoms; R33.8 Other retention of urine; N39.498 Other specified urinary incontinence; E83.51 Hypocalcemia; E88.09 Other disorders of plasma-protein metabolism, not elsewhere classified; K59.04 Chronic idiopathic constipation; Z99.81 Dependence on supplemental oxygen; Z88.5 Allergy status to narcotic agent; Z88.8 Allergy status to other drugs, medicaments and biological substances; Z79.82 Long term (current) use of aspirin; Z79.84 Long term (current) use of oral hypoglycemic drugs; Z98.49 Cataract extraction status, unspecified eye; Z87.891 Personal history of nicotine dependence
CPT/HCPCS: 36415; 71045; 71260; 80048; 80053; 80202; 81001; 82272; 82550; 82553; 82962; 83036; 83605; 83735; 83880; 84484; 85008; 85025; 85610; 85730; 87040; 87070; 87086; 87205; 88112; 88305; 89051; 93005; 94640; 94761; 97110-GO; 97110-GP; 97162-GP; 97165-GO; 97530-GO; 97530-GP; 97535-GO; 99306; 99308; 99316; A9270-GY; J0696; J1815-GY; J1940; J1956; J2001; J3370; J7050; J7620-GY; Q9967